=== PATIENT | female | born 1935 | race Caucasian/White ===

== ENCOUNTER 2018-02-02 10:42 | Inpatient (IN) | payer MEDICARE, OTHER ==
[2018-02-02 11:40] LABS: #Lymphocytes 1.4 thou/uL (1.20-3.40); #Monocytes 0.4 thou/uL (0.11-0.59); #Neutrophils 2.9 thou/uL (1.40-6.50); %Basophils 0.9 % (0.0-1.0); %Lymphocytes 28.8 % (21.0-51.0); %Monocytes 8.4 % (0.0-10.0); %Neutrophils 60.9 % (42.0-75.0); Hemoglobin 14.4 g/dL (12.0-16.0); Mean Corpuscular HGB CONC 34.4 g/dL (32.0-36.0); Mean Corpuscular Hemoglobin 30.1 pg (27.0-31.0); Mean Corpuscular Volume 87.5 fl (81.0-99.0); Mean Platelet Volume 7.3 fL (7.4-10.4); Platelet Count 219 thou/uL (130-400); RBC Distribution Width 12.1 % (11.5-14.5); White Blood Cell (WBC) Count 4.7 thou/uL (4.8-10.8)
[2018-02-02] MEDS ORDERED: Diltiazem HCl 125 MG, Admixture Fee 1 EACH in Sodium Chloride 0.9% 100 ML IVPB SCH (11:45)
[2018-02-02 12:05] LABS: ALT (SGPT) 11 U/L (8-55); AST (SGOT) 16 U/L (5-34); Alkaline Phosphatase 69 U/L (40-150); Anion Gap 14 mmol/L (10-20); BUN (Urea Nitrogen) 9 mg/dL (9.8-20.1); CK (CPK) 46 U/L (29-168); Calc. Creatinine Clearance 0 mL/min (70-130); Calcium 9.5 mg/dL (7.8-10.44); Carbon Dioxide 23 mmol/L (23-31); Chloride 103 mmol/L (98-107); Estimated GFR-MDRD 76; Globulin 2.5 g/dL (2.4-3.5); Glucose 101 mg/dL (83-110); Potassium 3.6 mmol/L (3.5-5.1); Protein, Total 6.5 g/dL (6.0-8.3); Sodium 136 mmol/L (136-145)
[2018-02-02 12:09] LABS: CKMB 3.1 ng/mL (0-6.6)
--- NOTE | 2018-02-02 13:17 | RAD ---
CHEST 1 VIEW: HISTORY: Emergency exam. Tachycardia. COMPARISON: Prior radiograph from 2011. FINDINGS: There is a density projecting over the left hemithorax, likely posterior mediastinum. The remainder of the lungs are clear. No pneumothorax. IMPRESSION: Density projecting over the left hemithorax, likely a sliding hiatal hernia. Two views of the chest may be beneficial if clinically warranted. POS: [place]
[2018-02-02] MEDS ORDERED: Enoxaparin Sodium 80 MG/0.8 ML SYRINGE ONE (13:29)
[2018-02-02] MEDS ORDERED: Acetaminophen 325 MG TAB PO PRN (13:48)
[2018-02-02] MEDS ORDERED: Bisacodyl 5 MG TAB PO PRN (13:48)
[2018-02-02] MEDS ORDERED: Acetaminophen 650 MG Suppository PR PRN (13:48)
[2018-02-02] MEDS ORDERED: Diltiazem 125 MG in Sodium Chloride 0.9% 100 ML IVPB PRN (13:50)
[2018-02-02] MEDS ORDERED: Diltiazem 125 MG in Sodium Chloride 0.9% 100 ML IVPB SCH (14:00)
--- NOTE | 2018-02-02 14:04 | HP ---
PRIMARY CARE PHYSICIAN: Romina Cummins M.D. PRIMARY GERIATRIC NURSE ASSISTANT: Paddy Aguiar M.D. CHIEF COMPLAINT: Palpitations. HISTORY OF PRESENT ILLNESS: Ms. Cifuentes is a pleasant 82-year-old lady who was seen at [facility] on 02/02/2018. She was hospitalized at a different facility about a month ago for l ow potassium. Over the last month, she had on and off lightheadedness. She also had fluctuating blood pressures ov er the last month. She also had occasional palpitations. She had more palpitations yesterday. She denies any chest pain or shortness of breath. She denies any fevers or chills. She denies any nause a or vomiting. REVIEW OF SYSTEMS: The following complete review of systems was negative, unless otherwise mentioned in the HPI or below: Constitutional: Weight loss or gain, ability to conduct usual activities. Skin: Rash, itching. Eyes: Double vision, pain. ENT/Mouth: Nose bleeding, neck stiffness, pain, tenderness. Cardiovascular: Palpitations, dyspnea on exertion, orthopnea. Respiratory: Shortness of breath, wheezing, cough, hemoptysis, fever or night sweats. Gastrointestinal: Poor appetite, abdominal pain, heartburn, nausea, vomiting, constipation, or diarr hea. Genitourinary: Urgency, frequency, dysuria, nocturia. Musculoskeletal: Pain, swelling. Neurologic/Psychiatric: Anxiety, depression. Allergy/Immunologic: Skin rash, bleeding tendency. 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 PAST SURGICAL HISTORY: Significant for surgery for retinal detachment in the left eye and cholecyste ctomy. SOCIAL HISTORY: Patient denies tobacco use, alcohol use and recreational drug use. CODE STATUS: I discussed her code status. She is FULL CODE. Her two daughters are her surrogate de cision makers. FAMILY HISTORY: Her dad from an enlarged heart. ALLERGIES: No known drug allergies. CURRENT MEDICATIONS: Losartan 50 mg daily, Toprol-XL 25 mg at bedtime, hydrochlorothiazide 12.5 mg d aily, clonidine 0.1 mg as needed. PHYSICAL EXAMINATION: GENERAL: On examination, Ms. Cifuentes is awake and alert, not in acute distress. VITAL SIGNS: Blood pressure is 121/74, pulse is 91. She is breathing at rate of 20 and saturating 9 5% on room air. She is afebrile. EYES: No scleral icterus. No conjunctival pallor. ENT: Moist mucosal membranes, no oropharyngeal erythema or exudates. NECK: Supple, nontender, trachea is midline, no thyromegaly. RESPIRATORY: Accessory muscles of breathing are not active. Chest wall movements are symmetric bila terally. LUNGS: Clear to auscultation without wheeze, rhonchi or crepitations. CARDIOVASCULAR: S1 and S2 are heard, tachycardic and irregular. LUNGS: Peripheral pulses palpable. No carotid bruit, no pericardial rub. ABDOMEN: Soft, nontender, bowel sounds are heard, no hepatomegaly, no splenomegaly. NEUROLOGIC: Cranial nerves II-XII intact. MUSCULOSKELETAL: Power is 5/5 in all 4 extremities. SKIN: No rashes or subcutaneous nodules. LYMPHATIC: No cervical lymphadenopathy. PSYCHIATRIC: Normal mood, normal affect. The patient is oriented to person, place, and time. IMAGING DATA AND LABORATORY DATA: Ms. Cifuentes's labs and investigations were reviewed. I reviewed her e lectrocardiogram, which shows atrial fibrillation with rapid ventricular response, no ST changes to s uggest an acute coronary syndrome. I also reviewed her chest x-ray, which does not show any pulmonar y infiltrates. She has low white count of 4,700, normal hemoglobin, normal platelet count, unremarka ble comprehensive metabolic profile, low TSH of 0.1364 and normal free T4 of 8.6 and normal troponin I. ASSESSMENT AND PLAN: Ms. Cifuentes is a pleasant 82-year-old lady who was seen at [facility] on 02/02/2018. Her problem list includes: 1. Atrial fibrillation with rapid ventricular response: Ms. Almodovar is presenting with atrial fibrill ation with rapid ventricular response. She received a bolus of Cardizem and is now on a Cardizem dri p. We will continue her on Cardizem drip, since her rate is controlled now. We will consult Cardiol ogy Service. I had a lengthy discussion with the patient and her family regarding treatment options as well as anticoagulation choices. We will await Cardiology Service input. 2. Hypertension: Monitor vital signs, titrate antihypertensives as needed. 3. Hiatal hernia: Stable. 4. Dyslipidemia: Patient is currently not on any medications for dyslipidemia. We will check fasti lipid profile. Many thanks for allowing me to participate in Ms. Cifuentes's care. Please feel free to contact me with an y questions or concerns. LEVEL OF RISK: High. LEVEL OF COMPLEXITY: High.
[2018-02-02 15:05] LABS: Troponin I 0.028 ng/mL (< 0.028)
[2018-02-02 17:05] VITALS: BMI 26.2
[2018-02-02 17:43] LABS: Troponin I 0.041 ng/mL (< 0.028)
[2018-02-02] MEDS: Enoxaparin Sodium 80 MG/0.8 ML SYRINGE SC SCH (20:49)
--- NOTE | 2018-02-02 22:21 | CON ---
DATE OF CONSULTATION: 02/02/2018 HISTORY OF PRESENT ILLNESS: Patient is an 82-year-old woman who presents for the evaluation of palpitations. Patient has a history of hypertension. She recently underwent a cardiac evaluation including a nuclear stress test, which was apparently unremarkable. The patient states that she suddenly noted that started feeling weak and had palpitations. She did not have any chest discomfort. PAST MEDICAL HISTORY: Hypertension and hiatal hernia. PAST SURGICAL HISTORY: Cholecystectomy and retinal eye surgery. SOCIAL HISTORY: She is a nonsmoker. MEDICATIONS ON ADMISSION: Losartan 50 daily, Toprol 25 XL daily, hydrochlorothiazide 12.5 daily, clonidine p.r.n. FAMILY HISTORY: Positive family history of heart disease. Father had a myocardial infarction. ALLERGIES: No known drug allergies. REVIEW OF SYSTEMS: Ten-point system otherwise unremarkable. No history of easy bruising or bleeding, bright red blood per rectum. PHYSICAL EXAMINATION: GENERAL: This is a well-developed woman in no acute distress with a blood pressure of 104/64. NECK: No jugular venous distention. LUNGS: Clear to auscultation. HEART: Irregular rate and rhythm. Normal S1, S2, no murmurs. ABDOMEN: Nondistended. EXTREMITIES: Showed no edema. SKIN: Warm and dry. NEUROLOGIC: Nonfocal. VASCULAR: Radial pulses are 2+. LABORATORY DATA: Sodium 136, potassium 3.6, chloride 103, bicarb 23, BUN 9, creatinine is 0.73, troponin 0.041. TSH was 1.364. Her white blood cell count is 4.7, hemoglobin 14.4, hematocrit 42.0, and her platelets are 219. EKG revealed atrial fibrillation with nonspecific ST-T wave abnormality. IMPRESSION: 1. Paroxysmal atrial fibrillation. 2. Hypertension. 3. Hiatal hernia. PLAN: This patient presents with new-onset atrial fibrillation. Patient has been started on IV Cardizem. We will restart the patient's Toprol. We will give her a dose of Lanoxin and try to convert to normal sinus rhythm. Patient has been started on Lovenox. Patient will be eventually switched to Eliquis. We will follow this patient with you throughout her hospitalization. BILLY
[2018-02-03 05:25] LABS: #Lymphocytes 1.5 thou/uL (1.20-3.40); #Monocytes 0.4 thou/uL (0.11-0.59); #Neutrophils 2.1 thou/uL (1.40-6.50); %Basophils 0.9 % (0.0-1.0); %Eosinophils 1.2 % (0.0-10.0); %Lymphocytes 37.6 % (21.0-51.0); %Monocytes 8.9 % (0.0-10.0); %Neutrophils 51.5 % (42.0-75.0); Hemoglobin 12.5 g/dL (12.0-16.0); Mean Corpuscular HGB CONC 33.8 g/dL (32.0-36.0); Mean Corpuscular Hemoglobin 29.5 pg (27.0-31.0); Mean Corpuscular Volume 87.5 fl (81.0-99.0); Platelet Count 178 thou/uL (130-400); RBC Distribution Width 12.1 % (11.5-14.5); Red Blood Cell (RBC) Count 4.24 mill/uL (4.20-5.40); White Blood Cell (WBC) Count 4.1 thou/uL (4.8-10.8)
[2018-02-03 05:34] LABS: Anion Gap 11 mmol/L (10-20); BUN (Urea Nitrogen) 10 mg/dL (9.8-20.1); Calc. Creatinine Clearance 73 mL/min (70-130); Calcium 8.9 mg/dL (7.8-10.44); Carbon Dioxide 25 mmol/L (23-31); Chloride 107 mmol/L (98-107); Estimated GFR-MDRD 79; Glucose 106 mg/dL (83-110); Potassium 3.3 mmol/L (3.5-5.1); Sodium 140 mmol/L (136-145)
[2018-02-03] MEDS ORDERED: Milk Of Magnesia 30 ML UDCUP PO PRN (07:45)
[2018-02-03] MEDS ORDERED: Artificial Tear Sol 15 ML BOT EA EYE PRN (07:45)
[2018-02-03] MEDS ORDERED: Diabetic Tussin 200 MG/10 ML UDCUP PO PRN (07:45)
[2018-02-03] MEDS ORDERED: Senokot 8.6 MG TAB PO PRN (07:45)
[2018-02-03] MEDS ORDERED: Mag-Al 1200 mg/1200 mg/30 ML UDCUP PO PRN (07:45)
[2018-02-03] MEDS ORDERED: Chloraseptic Spray 180 ml Bottle PO PRN (07:45)
[2018-02-03] MEDS ORDERED: Zolpidem Tartrate 5 MG TAB PO PRN (07:45)
[2018-02-03] MEDS ORDERED: Loratadine 10 MG TAB PO PRN (07:45)
[2018-02-03] MEDS ORDERED: Loperamide HCl 2 MG CAP PO PRN (07:45)
[2018-02-03] MEDS ORDERED: hydrALAZINE 20 MG/ML VIAL SLOW IVP PRN (07:45)
[2018-02-03] MEDS ORDERED: Sodium Chloride 0.65% Nasal 44 ML BOT EA NARE PRN (07:45)
[2018-02-03] MEDS ORDERED: Eucerin (Mineral Oil/Petrolatum,White) 30 gm Jar TOP PRN (07:45)
[2018-02-03] MEDS ORDERED: Nitroglycerin 0.4 MG TAB (25 Tab Bottle) SL PRN (07:45)
[2018-02-03] MEDS ORDERED: HYDROcodone/Acetaminophen 5/325 mg Tablet PO PRN (07:45)
[2018-02-03] MEDS ORDERED: Ondansetron ODT 4 MG TAB PO PRN (07:45)
[2018-02-03] MEDS ORDERED: Ondansetron HCl/PF 4 MG/2 ML Vial IVP PRN (07:45)
[2018-02-03 08:37] LABS: Cardiac Risk 5.6 (Less than 4.5)
[2018-02-03] MEDS: Enoxaparin Sodium 80 MG/0.8 ML SYRINGE SC SCH (08:46)
[2018-02-03] MEDS: Famotidine 20 MG TAB PO SCH ×2 (08:47→20:48)
--- NOTE | 2018-02-03 11:30 | PDOC.PN ---
- Subjective Encounter Start Date: 02/03/18 Encounter Start Time: 08:00 -: old records requested/rev Patient seen and examined. No new complaints. No overnight events - Objective MAR Reviewed: Yes Vital Signs & Weight: Vital Signs (12 hours) Temp Pulse Resp BP Pulse Ox 02/03/18 07:25 97.9 F 73 18 99/65 95 02/03/18 07:20 97.9 F 73 18 95 02/03/18 04:00 97.9 F 87 16 96/61 96 02/03/18 00:10 88 20 131/66 Weight Weight 169 lb I&O: 02/02/18 02/03/18 02/04/18 06:59 06:59 06:59 Intake Total 300.1 Output Total 50 Balance 250.1 Result Diagrams: 02/03/18 04:38 02/03/18 04:38 Radiology Reviewed by me: Yes EKG Reviewed by me: Yes (afib) Phys Exam - Physical Examination Constitutional: NAD HEENT: PERRLA, moist MMs, sclera anicteric Neck: no JVD, supple Respiratory: no wheezing, no rales, no rhonchi Cardiovascular: no significant murmur, irregular Gastrointestinal: soft, non-tender, no distention, positive bowel sounds Musculoskeletal: no edema, pulses present Neurological: non-focal, normal sensation, moves all 4 limbs Psychiatric: normal affect, A&O x 3 Skin: no rash, normal turgor Dx/Plan (1) New onset atrial fibrillation Code(s): I48.91 - UNSPECIFIED ATRIAL FIBRILLATION Status: Acute (2) Demand ischemia Code(s): I24.8 - OTHER FORMS OF ACUTE ISCHEMIC HEART DISEASE Status: Acute (3) Hypokalemia Code(s): E87.6 - HYPOKALEMIA Status: Acute (4) Hypertension Code(s): I10 - ESSENTIAL (PRIMARY) HYPERTENSION Status: Chronic (5) Sliding hiatal hernia Code(s): K44.9 - DIAPHRAGMATIC HERNIA WITHOUT OBSTRUCTION OR GANGRENE Status: Chronic - Plan cont current plan of care, plan discussed w/ family * continue cardizem drip, rate controlled but still in afib * cardiology following * echo will be done today * medication reviewed as below * symptomatic treatment * continue lovenox * replace potassium * discussed with family. Review of Systems - Review of Systems Constitutional: negative: fever, chills, sweats, weakness, malaise, other ENT: negative: Ear Pain, Ear Discharge, Nose Pain, Nose Discharge, Nose Congestion, Mouth Pain, Mouth Swelling, Throat Pain, Throat Swelling, Other Respiratory: negative: Cough, Dry, Shortness of Breath, Hemoptysis, SOB with Excertion, Pleuritic Pain, Sputum, Wheezing Cardiovascular: negative: chest pain, palpitations, orthopnea, paroxysmal nocturnal dyspnea, edema, light headedness, other Gastrointestinal: negative: Nausea, Vomiting, Abdominal Pain, Diarrhea, Constipation, Melena, Hematochezia, Other Genitourinary: negative: Dysuria, Frequency, Incontinence, Hematuria, Retention , Other Musculoskeletal: negative: Neck Pain, Shoulder Pain, Arm Pain, Back Pain, Hand Pain, Leg Pain, Foot Pain, Other Skin: negative: Rash, Lesions, Alex, Bruising, Other - Medications/Allergies Allergies/Adverse Reactions: Allergies Allergy/AdvReac Type Severity Reaction Status Date / Time No Known Allergies Allergy Unverified 02/02/18 11:37 Medications: Current Medications Acetaminophen (Tylenol) 650 mg PO Q4H PRN PRN Reason: Headache/Fever or Pain Hydrocodone Bitart/Acetaminophen ([place] 5/325) 1 tab PO Q4H PRN PRN Reason: Moderate Pain (4-6) Al Hydroxide/Mg Hydroxide (Maalox) 15 ml PO Q4H PRN PRN Reason: Heartburn or Indigestion Artificial Tears (Tears Renewed 15ml Bottle) 0 drop EA EYE PRN PRN PRN Reason: Dry Eyes Bisacodyl (Dulcolax) 10 mg PO DAILYPRN PRN PRN Reason: Constipation Enoxaparin Sodium (Lovenox) 70 mg SC Q12HR [facility] Last Admin: 02/03/18 08:46 Dose: 70 mg Famotidine (Pepcid) 20 mg PO BID [facility] Last Admin: 02/03/18 08:47 Dose: 20 mg Guaifenesin (Robitussin Sf) 200 mg PO Q4H PRN PRN Reason: Cough Hydralazine HCl (Apresoline) 10 mg SLOW IVP Q4H PRN PRN Reason: Systolic BP > 180 Diltiazem HCl 125 mg/ Sodium (Chloride) 125 mls @ 5 mls/hr IVPB INF JOSE; 5 MG/ HR PRN Reason: Protocol Last Admin: 02/03/18 09:31 Dose: 125 mls Loperamide HCl (Imodium) 2 mg PO PRN PRN PRN Reason: Diarrhea/Loose Stools Loratadine (Claritin) 10 mg PO DAILYPRN PRN PRN Reason: Sinus Symptoms Magnesium Hydroxide (Milk Of Magnesium) 30 ml PO DAILYPRN PRN PRN Reason: Constipation Mineral Oil/White Petrolatum (Eucerin Cream) 0 gm TOP BIDPRN PRN PRN Reason: Dry Skin Nitroglycerin (Nitrostat) 0.4 mg SL Q5MIN PRN PRN Reason: Chest Pain Ondansetron HCl (Zofran Odt) 4 mg PO Q6H PRN PRN Reason: Nausea/Vomiting Ondansetron HCl (Zofran) 4 mg IVP Q6H PRN PRN Reason: Nausea/Vomiting Phenol (Chloraseptic [place] 180 Ml Bot) 0 ml PO PRN PRN PRN Reason: Sore Throat Senna (Senokot) 2 tab PO HSPRN PRN PRN Reason: Constipation Sodium Chloride ([place] Nasal [place] 0.65%) 0 ml EA NARE QIDPRN PRN PRN Reason: Nasal Congestion Zolpidem Tartrate (Ambien) 5 mg PO HSPRN PRN PRN Reason: Insomnia
[2018-02-03] MEDS ORDERED: Potassium Chloride 20 MEQ TAB PO SCH (11:45)
[2018-02-03] MEDS ORDERED: Digoxin 0.5 MG/2 ML AMP SLOW IVP SCH (14:30)
[2018-02-03] MEDS: Apixaban 5 MG TAB PO SCH ×2 (20:49→21:03)
[2018-02-03] MEDS ORDERED: Digoxin 0.25 MG TAB PO SCH (21:00)
--- NOTE | 2018-02-03 22:51 | PDOC.EVN ---
Event Note - Event Note Event Note: Called to address concern for eye issues.Pt seen and care discussed w family. 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 Tried the number for the MD myself but it's not a direct number. Pt given option of Inpt consult with our [facility] but they would rather see their own on Sunday or even tomorrow if released early from the hospital. Will monitor ON.No vision loss and does not seem consistent with CRVO etc. Chart reviewed. Discussed with Dr. Newsome who has stopped Lovenox for now given for a-fib.NSR for now
[2018-02-04 05:12] LABS: #Eosinphils 0.1 thou/uL (0.0-0.7); #Lymphocytes 1.7 thou/uL (1.20-3.40); #Monocytes 0.3 thou/uL (0.11-0.59); %Basophils 0.9 % (0.0-1.0); %Eosinophils 1.5 % (0.0-10.0); %Lymphocytes 40.8 % (21.0-51.0); %Monocytes 8.5 % (0.0-10.0); %Neutrophils 48.4 % (42.0-75.0); Hemoglobin 12.7 g/dL (12.0-16.0); Mean Corpuscular HGB CONC 34.7 g/dL (32.0-36.0); Mean Corpuscular Hemoglobin 31.7 pg (27.0-31.0); Mean Corpuscular Volume 91.5 fl (81.0-99.0); Mean Platelet Volume 8.3 fL (7.4-10.4); Platelet Count 191 thou/uL (130-400); RBC Distribution Width 12.3 % (11.5-14.5); Red Blood Cell (RBC) Count 3.99 mill/uL (4.20-5.40); White Blood Cell (WBC) Count 4.1 thou/uL (4.8-10.8)
[2018-02-04 05:30] LABS: Digoxin 1.46 ng/mL (0.8-2.0)
[2018-02-04 05:41] LABS: Anion Gap 10 mmol/L (10-20); BUN (Urea Nitrogen) 8 mg/dL (9.8-20.1); Calc. Creatinine Clearance 72 mL/min (70-130); Calcium 8.6 mg/dL (7.8-10.44); Carbon Dioxide 23 mmol/L (23-31); Chloride 109 mmol/L (98-107); Estimated GFR-MDRD 76; Glucose 91 mg/dL (83-110); Potassium 3.7 mmol/L (3.5-5.1); Sodium 138 mmol/L (136-145)
[2018-02-04] MEDS: Famotidine 20 MG TAB PO SCH ×2 (08:54→20:08)
[2018-02-04] MEDS ORDERED: Digoxin 0.25 MG TAB PO SCH (09:00)
--- NOTE | 2018-02-04 10:29 | PDOC.PN ---
- Subjective Encounter Start Date: 02/04/18 Encounter Start Time: 08:40 pt was loaded with digoxin yesterday and pt felt reaction with hallucination, confusion, hallucination cleared but confusion persisted, pt does not want to take digoxin any more - Objective MAR Reviewed: Yes Vital Signs & Weight: Vital Signs (12 hours) Temp Pulse Resp BP Pulse Ox 02/04/18 08:54 76 02/04/18 05:11 93 L 02/04/18 04:00 97.8 F 76 16 134/74 94 L 02/04/18 00:00 97.5 F L 63 17 124/63 93 L Weight Weight 165 lb 1.6 oz I&O: 02/03/18 02/04/18 02/05/18 06:59 06:59 06:59 Intake Total 300.1 208 Output Total 50 Balance 250.1 208 Result Diagrams: 02/04/18 04:17 02/04/18 04:17 EKG Reviewed by me: Yes (nsr) Phys Exam - Physical Examination Constitutional: NAD HEENT: PERRLA, moist MMs, sclera anicteric Neck: no JVD, supple Respiratory: no wheezing, no rales, no rhonchi Cardiovascular: RRR, no significant murmur, no rub Gastrointestinal: soft, non-tender, no distention, positive bowel sounds Musculoskeletal: no edema, pulses present Neurological: non-focal, normal sensation, moves all 4 limbs Psychiatric: normal affect Skin: no rash, normal turgor Dx/Plan (1) New onset atrial fibrillation Code(s): I48.91 - UNSPECIFIED ATRIAL FIBRILLATION Status: Acute (2) Demand ischemia Code(s): I24.8 - OTHER FORMS OF ACUTE ISCHEMIC HEART DISEASE Status: Acute (3) Hypokalemia Code(s): E87.6 - HYPOKALEMIA Status: Acute (4) Hypertension Code(s): I10 - ESSENTIAL (PRIMARY) HYPERTENSION Status: Chronic (5) Sliding hiatal hernia Code(s): K44.9 - DIAPHRAGMATIC HERNIA WITHOUT OBSTRUCTION OR GANGRENE Status: Chronic - Plan cont current plan of care, plan discussed w/ family * continue elliquis * dc digoxin for reaction * continue toprol xl * will consider adding cardizem if needed * medication reviewed as below * symptomatic treatment * will monitor today * echo pending. Review of Systems - Review of Systems Constitutional: negative: fever, chills, sweats, weakness, malaise, other Eyes: negative: Pain, Vision Change, Conjunctivae Inflammation, Eyelid Inflammation, Redness, Other ENT: negative: Ear Pain, Ear Discharge, Nose Pain, Nose Discharge, Nose Congestion, Mouth Pain, Mouth Swelling, Throat Pain, Throat Swelling, Other Respiratory: negative: Cough, Dry, Shortness of Breath, Hemoptysis, SOB with Excertion, Pleuritic Pain, Sputum, Wheezing Cardiovascular: negative: chest pain, palpitations, orthopnea, paroxysmal nocturnal dyspnea, edema, light headedness, other Gastrointestinal: negative: Nausea, Vomiting, Abdominal Pain, Diarrhea, Constipation, Melena, Hematochezia, Other Genitourinary: negative: Dysuria, Frequency, Incontinence, Hematuria, Retention , Other Musculoskeletal: negative: Neck Pain, Shoulder Pain, Arm Pain, Back Pain, Hand Pain, Leg Pain, Foot Pain, Other Skin: negative: Rash, Lesions, Alex, Bruising, Other Neurological: Confusion. negative: Weakness, Numbness, Incoordination, Change in Speech, Seizures, Other - Medications/Allergies Allergies/Adverse Reactions: Allergies Allergy/AdvReac Type Severity Reaction Status Date / Time No Known Allergies Allergy Unverified 02/02/18 11:37 Medications: Current Medications Acetaminophen (Tylenol) 650 mg PO Q4H PRN PRN Reason: Headache/Fever or Pain Hydrocodone Bitart/Acetaminophen ([place] 5/325) 1 tab PO Q4H PRN PRN Reason: Moderate Pain (4-6) Al Hydroxide/Mg Hydroxide (Maalox) 15 ml PO Q4H PRN PRN Reason: Heartburn or Indigestion Apixaban (Eliquis) 5 mg PO BID [facility] Last Admin: 02/03/18 21:03 Dose: 5 mg Apixaban (Eliquis) 5 mg PO NOW [facility] Stop: 02/04/18 12:00 Artificial Tears (Tears Renewed 15ml Bottle) 0 drop EA EYE PRN PRN PRN Reason: Dry Eyes Bisacodyl (Dulcolax) 10 mg PO DAILYPRN PRN PRN Reason: Constipation Famotidine (Pepcid) 20 mg PO BID [facility] Last Admin: 02/04/18 08:54 Dose: Not Given Guaifenesin (Robitussin Sf) 200 mg PO Q4H PRN PRN Reason: Cough Hydralazine HCl (Apresoline) 10 mg SLOW IVP Q4H PRN PRN Reason: Systolic BP > 180 Loperamide HCl (Imodium) 2 mg PO PRN PRN PRN Reason: Diarrhea/Loose Stools Loratadine (Claritin) 10 mg PO DAILYPRN PRN PRN Reason: Sinus Symptoms Magnesium Hydroxide (Milk Of Magnesium) 30 ml PO DAILYPRN PRN PRN Reason: Constipation Metoprolol Succinate (Toprol Xl) 25 mg PO DAILY [facility] Last Admin: 02/04/18 09:04 Dose: 25 mg Mineral Oil/White Petrolatum (Eucerin Cream) 0 gm TOP BIDPRN PRN PRN Reason: Dry Skin Nitroglycerin (Nitrostat) 0.4 mg SL Q5MIN PRN PRN Reason: Chest Pain Ondansetron HCl (Zofran Odt) 4 mg PO Q6H PRN PRN Reason: Nausea/Vomiting Ondansetron HCl (Zofran) 4 mg IVP Q6H PRN PRN Reason: Nausea/Vomiting Phenol (Chloraseptic [place] 180 Ml Bot) 0 ml PO PRN PRN PRN Reason: Sore Throat Senna (Senokot) 2 tab PO HSPRN PRN PRN Reason: Constipation Sodium Chloride ([place] Nasal [place] 0.65%) 0 ml EA NARE QIDPRN PRN PRN Reason: Nasal Congestion Zolpidem Tartrate (Ambien) 5 mg PO HSPRN PRN PRN Reason: Insomnia
[2018-02-04] MEDS ORDERED: Apixaban 5 MG TAB PO SCH (10:30)
[2018-02-04] MEDS: Apixaban 5 MG TAB PO SCH ×2 (11:21→20:08)
[2018-02-05 05:29] LABS: #Eosinphils 0.1 thou/uL (0.0-0.7); #Lymphocytes 1.5 thou/uL (1.20-3.40); #Monocytes 0.3 thou/uL (0.11-0.59); #Neutrophils 2.3 thou/uL (1.40-6.50); %Eosinophils 1.4 % (0.0-10.0); %Lymphocytes 35.4 % (21.0-51.0); %Monocytes 7.9 % (0.0-10.0); %Neutrophils 54.3 % (42.0-75.0); Hemoglobin 11.8 g/dL (12.0-16.0); Mean Corpuscular Hemoglobin 30.7 pg (27.0-31.0); Mean Corpuscular Volume 90.2 fl (81.0-99.0); Mean Platelet Volume 7.6 fL (7.4-10.4); Platelet Count 183 thou/uL (130-400); RBC Distribution Width 11.8 % (11.5-14.5); Red Blood Cell (RBC) Count 3.86 mill/uL (4.20-5.40); White Blood Cell (WBC) Count 4.3 thou/uL (4.8-10.8)
[2018-02-05 05:42] LABS: Anion Gap 11 mmol/L (10-20); BUN (Urea Nitrogen) 7 mg/dL (9.8-20.1); Calc. Creatinine Clearance 72 mL/min (70-130); Calcium 8.5 mg/dL (7.8-10.44); Carbon Dioxide 25 mmol/L (23-31); Chloride 102 mmol/L (98-107); Estimated GFR-MDRD 79; Glucose 100 mg/dL (83-110); Potassium 3.5 mmol/L (3.5-5.1); Sodium 134 mmol/L (136-145)
[2018-02-05] MEDS: Famotidine 20 MG TAB PO SCH (08:07)
[2018-02-05] MEDS: Apixaban 5 MG TAB PO SCH (08:17)
[2018-02-05 09:58] VITALS: BP 139/74; TEMP 97
--- NOTE | 2018-02-05 12:26 | DIS ---
DATE OF ADMISSION: 02/02/2018 DATE OF DISCHARGE: 02/05/2018 PRIMARY CARE PHYSICIAN: Dr. Romina Cummins. DISCHARGE DISPOSITION: Home. PRIMARY DISCHARGE DIAGNOSES: 1. Atrial fibrillation with rapid ventricular response, new onset. 2. Demand ischemia of myocardium. 3. Hypokalemia. SECONDARY DISCHARGE DIAGNOSES: 1. Hypertension. 2. Sliding hiatal hernia. PRIMARY PROCEDURE AND OPERATION: None. RADIOLOGICAL INVESTIGATION: Chest x-ray, no acute cardiopulmonary process. Echocardiography showed EF 50%-55%. SIGNIFICANT LABORATORY DATA: WBC 4.3, hemoglobin 11.8, platelet 183,000. Sodium 134, potassium 3.5, BUN 7, creatinine 0.71, calcium 8.5, troponin 0.041, LDL 120. TSH 0.13, T4 8.6. LFT normal. DISCHARGE MEDICATIONS: Eliquis 5 mg p.o. b.i.d., clonidine 0.1 mg p.o. daily p.r.n. for blood pressu re more than 160/100, hydrochlorothiazide 12.5 mg p.o. daily, losartan 50 mg p.o. daily, Toprol-XL 25 mg p.o. at bedtime. CONTRAINDICATIONS: None. CODE STATUS: FULL CODE. INPATIENT CONSULTANTS: Dr. Newsome was consulted while in hospital. TEST RESULTS PENDING ON DISCHARGE: None. ALLERGIES: No known drug allergy. DISCHARGE PLAN: Post hospital, the patient will follow up with primary care physician in 1 week. Th e patient will follow up with Dr. Aguiar as instructed. HOSPITAL COURSE: An 82-year-old female who was admitted by Dr. Roberts, please see his H&P for further detail. The patient was presented with palpitations. She was diagnosed with atrial fibrillation wi th rapid ventricular response, based on EKG. She had hypokalemia. The patient was admitted to telem etry floor. She was treated with Cardizem drip. Cardiology was consulted. We did echocardiography. Echocardiography was normal. She was on a Cardizem drip for 24 hours, but she remained in atrial f ibrillation and that is why Dr. Newsome started on digoxin therapy. This patient did not tolerate d igoxin therapy very well. She has reaction with hallucination and visual symptoms and that is why di goxin therapy was discontinued. The patient converted to normal sinus rhythm and we continued with T oprol-XL for anticoagulation therapy. We started on Eliquis therapy. Risk and benefit of Eliquis th umm was discussed with the patient's family member and agreed with continuing Eliquis therapy. At this point, the patient is in sinus rhythm, her heart rate is under control. Patient is medically stable for discharge. The patient is seen and examined at bedside today. Plan of care discussed with the family member. N ew medication prescription sent to her pharmacy. PHYSICAL EXAMINATION: VITAL SIGNS: Today, temperature 97.0, pulse 71 regular, respiratory rate 18, saturation 93%, blood p ressure 139/74, weight 167 pounds. GENERAL: The patient is currently alert, awake, no acute distress. HEAD: Normocephalic, atraumatic. EYES: Pupils round, reactive to light. Extraocular muscle intact. ENT: Oropharynx within normal limits. Moist mucous membrane, no oral lesion, no pharyngeal erythema , no exudate. NECK: Supple. LUNGS: Clear to auscultation without any rhonchi or rales. CARDIAC: S1, S2 regular without any murmur. ABDOMEN: Soft and benign without any tenderness. EXTREMITIES: No edema. NEUROLOGIC: Nonfocal examination. Overall, patient is medically stable for discharge today. Review of systems negative.
--- NOTE | 2018-02-05 13:29 | PRG ---
DATE OF SERVICE: 02/05/2018 Ms. Cifuentes is doing well. She converted back to sinus rhythm 36 hours ago. She had some difficulty wit h hallucinations overnight. This is likely due to sundowning. She attributes this to either digoxin or Eliquis. PHYSICAL EXAMINATION: VITAL SIGNS: Blood pressure 132/92, pulse 71, temperature 97. LUNGS: Clear to auscultation. CARDIAC: Regular rate and rhythm. ABDOMEN: Soft, nontender, nondistended. EXTREMITIES: No edema. IMPRESSION: Paroxysmal atrial fibrillation. RECOMMENDATIONS: Ms. Cifuentes's paroxysmal atrial fibrillation was short lived. At this point, would rec ommend Eliquis in addition to beta kendal therapy. We will hold digoxin. Her mental status change is likely due to sundowning. She is 82. Her symptoms occurred at around 10:30 or 11:[address] ates this could have been due to Eliquis, although she received a dose of Eliquis in the morning with out any issues. The plan is to follow up Ms. Cifuentes in the next 1 week.
== END 2018-02-05 12:40 | disposition home or self-care (01) | DRG 309 ==
LOC: ERS 10:42 → 2NO 16:46
PROVIDERS: ADMIT Internal Medicine; ATTEND Internal Medicine
DX: I48.0 Paroxysmal atrial fibrillation (principal); I24.8 Other forms of acute ischemic heart disease; R44.3 Hallucinations, unspecified; E87.6 Hypokalemia; I10 Essential (primary) hypertension; K44.9 Diaphragmatic hernia without obstruction or gangrene; H54.8 Legal blindness, as defined in USA; E78.5 Hyperlipidemia, unspecified; T46.0X5A Adverse effect of cardiac-stimulant glycosides and drugs of similar action, initial encounter
CPT/HCPCS: 36415; 71045; 80048; 80053; 80061; 80162; 82553; 84436; 84443; 84484; 85025; 93005; 93306; 94760; 96365; 96366; 96372; 96376; J1160; J1650; J7050

== ENCOUNTER 2019-08-13 20:04 | Inpatient (IN) | payer MEDICARE ==
--- NOTE | 2019-08-13 21:45 | RAD ---
XR Hip Rt 2-3 View History: Pain Comparison: None. Findings: Intertrochanteric fracture right femur with mild impaction and varus angulation. Limited ev aluation of the right obturator ring is intact. Impression: Impacted there is reticulated intertrochanteric fracture right femur.
--- NOTE | 2019-08-13 21:46 | RAD ---
XR Chest 1 View Portable History: Fall Comparison: Radiograph 2018 Findings: Opacity projecting over the left hemithorax is similar appearance containing gas likely a l arge hiatal hernia. Atelectasis left lung base. No pneumothorax. Right lung is clear. Cardiac silhouette is similar. Moderate vascular calcifications of the aorta. No acute osseous abnorm ality. Surgical clips project over the left axilla. Subcortical cyst formation left humeral neck. Impression: Large hiatal hernia otherwise no acute intrathoracic abnormality.
[2019-08-13 21:52] LABS: #Lymphocytes 1.1 thou/uL (1.20-3.40); #Monocytes 0.8 thou/uL (0.11-0.59); #Neutrophils 11.3 thou/uL (1.40-6.50); %Basophils 0.1 % (0.0-1.0); %Eosinophils 0.3 % (0.0-10.0); %Lymphocytes 8.3 % (21.0-51.0); %Monocytes 6.1 % (0.0-10.0); %Neutrophils 85.1 % (42.0-75.0); Hemoglobin 12.3 g/dL (12.0-16.0); Mean Corpuscular Hemoglobin 30.7 pg (27.0-31.0); Mean Corpuscular Volume 87.8 fL (78.0-98.0); Mean Platelet Volume 6.8 fL (7.4-10.4); Platelet Count 188 thou/uL (130-400); RBC Distribution Width 12.3 % (11.5-14.5); White Blood Cell (WBC) Count 13.2 thou/uL (4.8-10.8)
--- NOTE | 2019-08-13 21:53 | RAD ---
XR Pelvis AP STANDARD History: Pain. Fall Comparison: Hip radiograph same day Findings: Intertrochanteric fracture right femur with varus angulation and impaction. Severe degenera tive disease pubic symphysis. SI joints are degenerative. Impression: Impacted foreshortened varus angulated intertrochanteric fracture right femur.
[2019-08-13 22:09] LABS: ALT (SGPT) 12 U/L (8-55); AST (SGOT) 17 U/L (5-34); Albumin 3.3 g/dL (3.4-4.8); Alkaline Phosphatase 38 U/L (40-110); Anion Gap 10 mmol/L (10-20); BUN (Urea Nitrogen) 10 mg/dL (9.8-20.1); Bilirubin, Total 0.7 mg/dL (0.2-1.2); Calc. Creatinine Clearance 0 mL/min (70-130); Calcium 7.9 mg/dL (7.8-10.44); Carbon Dioxide 27 mmol/L (23-31); Chloride 93 mmol/L (98-107); Estimated GFR-MDRD 77; Glucose 120 mg/dL (83-110); Potassium 3.5 mmol/L (3.5-5.1); Protein, Total 5.3 g/dL (6.0-8.3); Sodium 126 mmol/L (136-145)
[2019-08-13 22:27] LABS: INR-International Normal Ratio 1.2; Prothrombin Time 14.8 SEC (12.0-14.7)
--- NOTE | 2019-08-13 22:35 | CT ---
CT Brain WO Con History: Fall Comparison: None. Findings: Right frontoparietal scalp contusion. The underlying calvarium is intact. Scleral banding b ilaterally. No acute hemorrhage or infarct. No midline shift or mass effect. Moderate to severe periventricular a nd deep white matter microangiopathic changes. Moderate atrophy. 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 Impression: Right frontoparietal scalp contusion without acute posttraumatic intracranial sequelae.
[2019-08-13 22:41] LABS: Magnesium 1.6 mg/dL (1.6-2.6); Phosphorus 2.6 mg/dL (2.3-4.7)
[2019-08-13] MEDS ORDERED: Promethazine HCl 25 MG/ML VIAL IM/IV PRN (22:46)
[2019-08-13] MEDS ORDERED: Dextrose 5% in Water 1,000 ML IV PRN (22:46)
[2019-08-13] MEDS ORDERED: Ondansetron PF 4 MG/2 ML Vial IVP PRN (22:46)
[2019-08-13] MEDS ORDERED: hydrALAZINE 20 MG/ML VIAL SLOW IVP PRN (22:46)
[2019-08-13] MEDS ORDERED: Dextrose 50% Abboject 50 ML SYRINGE SLOW IVP PRN (22:46)
[2019-08-13] MEDS ORDERED: Morphine 2 MG/ML SYRINGE SLOW IVP PRN (22:46)
[2019-08-13] MEDS ORDERED: traMADol HCl 50 MG TAB PO PRN ×2 (22:52)
[2019-08-13] MEDS ORDERED: Ketorolac Tromethamine 30 MG/ML VIAL IVP SCH (23:00)
[2019-08-13] MEDS ORDERED: Ondansetron PF 4 MG/2 ML Vial ONE (23:08)
[2019-08-13] MEDS ORDERED: Ketorolac Tromethamine 30 MG/ML VIAL ONE (23:08)
[2019-08-13] MEDS ORDERED: Magnesium 2 GM/50 ML 2 GM in Premix Bag 1 BAG IVPB SCH (23:15)
[2019-08-13] MEDS ORDERED: Potassium Phosphate 15 MMOL, Admixture Fee 1 EACH in Sodium Chloride 0.9% 100 ML IVPB SCH (23:30)
--- NOTE | 2019-08-14 00:12 | HP ---
TRAUMA SURGEON: Dr. Kaur. CONSULTING PHYSICIAN: Dr. Christian. HISTORY OF PRESENT ILLNESS: The patient is an 83-year-old female who presented to the emergency department via EMS after mechanical fall on [place]. The patient is not sure exactly why she fell, but reported she did not have a loss of consciousness, denies lightheadedness at the time of the event as well as syncope or near-syncope. The patient denies hitting her head. There were no signs of trauma on her head as well. The emergency department physician did report that the patient had a syncopal or near syncopal episode when the IV was being placed by the nurse. Subsequently, a CT of the head was completed, which demonstrated no intracranial hemorrhage. Other x-ray imaging demonstrated the patient has a right intertrochanteric femur fracture for which Dr. Christian of Orthopedic Surgery was consulted and recommends surgical fixation. Trauma was consulted to admit the patient to the Trauma Service. At the time of my evaluation, the patient complained of right-sided hip pain. Denied pain at other locations. Reported she is very sensitive to narcotics and preferred not to receive IV narcotic pain medications. REVIEW OF SYSTEMS: All additional 10-point review of systems negative except as indicated above. PAST MEDICAL HISTORY: Left-sided breast cancer status post left mastectomy, hypertension, hiatal hernia, atrial fibrillation, macular degeneration, and legally blind in the right eye. PAST SURGICAL HISTORY: Left-sided mastectomy due to breast cancer, cholecystectomy, and eye surgeries, unsure of type. SOCIAL HISTORY: The patient lives at home alone. She has daughters and friends who are involved in her medical care. She denies tobacco, drug, or alcohol use. MEDICATIONS: Eliquis, losartan with potassium, prednisone, hydrochlorothiazide, metoprolol, and amoxicillin. ALLERGIES: NO KNOWN DRUG ALLERGIES. PHYSICAL EXAMINATION: VITAL SIGNS: Temperature 98.1, pulse 82, respirations 18, oxygen saturation 97% on room air, blood pressure 148/84. PRIMARY SURVEY: Airway intact. Adequate breath sounds bilaterally. 2+ pulses in the bilateral radials, femorals, and DPs. GCS is 15. Gross motor and sensation are intact. No lacerations, bruising or external bleeding. SECONDARY SURVEY: HEAD: Normocephalic, atraumatic with no gross palpable skull deformities or tenderness. EYES: Pupils 3-2, equal, round, and reactive to light bilaterally. ENT: No hemotympanum, no epistaxis, no septal hematoma. Midface stable to manipulation. No blood in the oropharynx. Dentition is intact. No anterior neck injury/crepitus/tenderness. C-SPINE: No step-offs or deformities, nontender. C-collar not in place. CHEST: Nontender. No crepitus. No abrasions or ecchymosis noted. Equal chest movement, left-sided mastectomy noticeable. ABDOMEN: Soft, nontender, nondistended. PELVIS: Stable to manipulation. No abrasions or ecchymosis. Right-sided hip tenderness. RECTAL: Deferred. GENITOURINARY: Deferred. EXTREMITIES: Right-sided lower extremity shortened and externally rotated. No abrasions or ecchymosis noted. Chronic swelling to the right ankle appears not to be increased from previously. Patient reports no tenderness. 2+ pulses in the bilateral radials, femorals, and DPs. BACK/SPINE: No step-offs or deformities or tenderness to palpation of the thoracic or lumbar spine. No abrasions or ecchymosis noted. NEUROLOGIC: 5/5 strength in the bilateral coverstitch binder, plantar flexion, and dorsiflexion. Gross normal sensation x4 extremities. LABORATORY FINDINGS: White count 13.2, hemoglobin 12.3, hematocrit 35.2, platelets 188. INR 1.2. Sodium 126, potassium 3.5, chloride 93, carbon dioxide 27, BUN 10, creatinine 0.72, glucose 120, phosphorus 2.6, magnesium 1.6. Total bilirubin 0.7, AST 17, ALT 12, alkaline phosphatase 38. DIAGNOSTIC FINDINGS: Chest x-ray demonstrates large hiatal hernia. Otherwise, no acute intrathoracic abnormalities. X-ray of the right hip demonstrates there is a rectangular reticulated intertrochanteric fracture of the right femur. X-ray of the pelvis demonstrates impacted foreshortened valgus angulated intertrochanteric fracture of the right femur. CT of the brain demonstrates right frontoparietal scalp contusion without acute posttraumatic intracranial sequela. ASSESSMENT: 1. Status post mechanical fall from standing on Eliquis. 2. Right intertrochanteric femur fracture. 3. Hyponatremia and hypochloremia. 4. Hypophosphatemia and hypomagnesemia. 5. History of left-sided breast cancer status post mastectomy, hypertension, hiatal hernia, atrial fibrillation, macular degeneration, right eye blindness. PLAN: The patient will be admitted to the Trauma Service. We will hold her home Eliquis and restart her other home medications as clinically indicated. Dr. Christian of Orthopedic Surgery has been notified of the patient and he is recommending surgical fixation on Sunday due to the patient's last Eliquis use this morning. She will be n.p.o. after midnight tomorrow night in preparation for the OR. At this time, she will receive a regular diet. She will be strict bedrest and she will receive physical and occupational therapy postoperatively. Hyperchloremic hyponatremia is likely secondary to dehydration. The patient did receive IV fluids in the emergency department. We will encourage the patient to drink more fluids and recheck her labs in the morning. She will receive phosphorus and magnesium electrolyte replacements today. The patient will likely need placement in acute rehab facility postoperatively. This patient was discussed with Dr. Kaur before this dictation. Job ID: [id number]
[2019-08-14 01:07] VITALS: BMI 29.0
[2019-08-14] MEDS: Acetaminophen 500 MG TAB PO SCH ×5 (01:29→23:29)
[2019-08-14] MEDS ORDERED: cloNIDine 0.1 MG TAB PO PRN (03:57)
[2019-08-14] MEDS ORDERED: Calcium Carbonate 500 MG ChewTAB PO PRN (04:17)
[2019-08-14 04:57] LABS: #Lymphocytes 0.7 thou/uL (1.20-3.40); #Monocytes 0.8 thou/uL (0.11-0.59); #Neutrophils 9.6 thou/uL (1.40-6.50); %Basophils 0.1 % (0.0-1.0); %Eosinophils 0.2 % (0.0-10.0); %Lymphocytes 6.6 % (21.0-51.0); %Monocytes 7.2 % (0.0-10.0); %Neutrophils 85.9 % (42.0-75.0); Hemoglobin 11.9 g/dL (12.0-16.0); Mean Corpuscular HGB CONC 35.6 g/dL (32.0-36.0); Mean Corpuscular Hemoglobin 31.9 pg (27.0-31.0); Mean Corpuscular Volume 89.8 fL (78.0-98.0); Mean Platelet Volume 6.8 fL (7.4-10.4); Platelet Count 170 thou/uL (130-400); RBC Distribution Width 12.4 % (11.5-14.5); Red Blood Cell (RBC) Count 3.72 mill/uL (4.20-5.40); White Blood Cell (WBC) Count 11.2 thou/uL (4.8-10.8)
[2019-08-14 05:20] LABS: Anion Gap 12 mmol/L (10-20); BUN (Urea Nitrogen) 12 mg/dL (9.8-20.1); Calc. Creatinine Clearance 88 mL/min (70-130); Calcium 7.3 mg/dL (7.8-10.44); Carbon Dioxide 21 mmol/L (23-31); Chloride 94 mmol/L (98-107); Estimated GFR-MDRD 89; Glucose 157 mg/dL (83-110); Phosphorus 3.1 mg/dL (2.3-4.7); Potassium 3.3 mmol/L (3.5-5.1); Sodium 124 mmol/L (136-145)
[2019-08-14] MEDS: Famotidine 20 MG TAB PO SCH ×2 (05:34→20:27)
[2019-08-14] MEDS ORDERED: Ibuprofen 600 MG TAB PO SCH (06:00)
[2019-08-14] MEDS ORDERED: Potassium Chloride 40 MEQ in Sodium Chloride 0.9% 250 ML 250 ML IVPB SCH (08:30)
[2019-08-14] MEDS: Losartan 25 MG TAB PO SCH (08:44)
[2019-08-14] MEDS: Polyethylene Glycol 3350 17 GM Packet PO SCH (08:45)
[2019-08-14] MEDS: predniSONE 5 MG TAB PO SCH ×2 (08:45→18:11)
[2019-08-14] MEDS: Senokot S 8.6-50 MG TAB PO SCH ×2 (08:45→20:27)
[2019-08-14] MEDS ORDERED: Hydrochlorothiazide 25 MG TAB PO SCH (09:00)
--- NOTE | 2019-08-14 11:53 | CON ---
DATE OF CONSULTATION: 08/14/2019 CHIEF COMPLAINT: Right hip pain. HISTORY OF PRESENT ILLNESS: Ms. Cifuentes is an 83-year-old female, who was at home yesterday. She lost her balance and fell. She landed on her right side. She was unable to ambulate. She had immediate pain. She was taken to the emergency department by EMS. She was found to have a right intertrochanteric femur fracture. She has been admitted to the hospital overnight. She denies loss of consciousness. She has been comfortable. She has had pain control. She reports resting overnight. REVIEW OF SYSTEMS: Positive for right hip pain with any motion. PAST MEDICAL HISTORY: Breast cancer, hypertension, hiatal hernia, atrial fibrillation, and macular degeneration with legal blindness on the right. PAST SURGICAL HISTORY: Mastectomy from previous breast cancer, also cholecystectomy, previous eye surgery, and possible cataracts. MEDICATIONS: The patient is on; 1. Eliquis. 2. Losartan. 3. Potassium. 4. Prednisone. 5. Hydrochlorothiazide. 6. Metoprolol. 7. Amoxicillin. PHYSICAL EXAMINATION: VITAL SIGNS: Temperature is 98.8, pulse is 83, respiratory rate is 14, oxygen saturation 98%, and blood pressure is 120/68. GENERAL: She is alert and oriented, no apparent distress. RESPIRATORY: Breathing comfortably. ABDOMEN: Soft, nontender, and nondistended. MUSCULOSKELETAL: The patient's right leg has a slightly shortened posture and external rotation. She is able to flex and extend the foot and ankle. Palpable pulse. No laceration or ecchymosis is visible. Left lower extremity and upper extremities are atraumatic. IMAGING DATA: X-rays of the right hip demonstrated displaced intertrochanteric two-part fracture. IMPRESSION: Right intertrochanteric femur fracture. PLAN: At this point, the patient will need surgical intervention. We will plan for dynamic hip screw fixation when she is ready for surgery. This will allow her to mobilize with a goal of preventing complications of prolonged bedrest. She is on Eliquis and therefore, we will need to wait on surgery until tomorrow. This will give her 48 hours off her blood thinner. She will have adequate pain control. She will have medical optimization. She will have DVT prophylaxis and antibiotic prophylaxis as needed. Job ID: [id number]
--- NOTE | 2019-08-14 12:13 | PRG ---
DATE OF SERVICE: 08/14/2019 SUBJECTIVE: The patient is hospital day 2, status post ground level fall, in which she sustained a right intertrochanteric femur fracture. The patient is on Eliquis, since she is unable to undergo surgery today. She will be made n.p.o. after midnight and will likely have surgery tomorrow. Overnight, the patient had no issues. Her pain was controlled. She is tolerating a diet this morning, although she has a decreased appetite. OBJECTIVE: VITAL SIGNS: Temperature is 98.8, heart rate 83, blood pressure 120/68, respirations 14, and oxygen saturation 98% on room air. GENERAL: The patient is resting comfortably in bed. She is awake, alert, and oriented x3. [place] Coma Scale is 15. HEENT: Unremarkable. LUNGS: Clear to auscultation with good inspiratory and expiratory effort. HEART: Regular rate and rhythm. ABDOMEN: Soft, flat, and nontender with active bowel sounds. PELVIS: Stable with pain to the right hip consistent with her fracture. EXTREMITIES: Neurovascularly intact x4. LABORATORY FINDINGS: White blood cell count 11.2, hemoglobin 11.9, hematocrit 33.4, and platelets 170. Sodium 124, potassium 3.3, chloride 94, CO2 of 21, BUN 12, creatinine 0.64, and glucose 157. IMAGING STUDIES: No radiographs to review this morning. ASSESSMENT: 1. Status post ground level fall from standing on Eliquis. 2. Right intertrochanteric femur fracture, awaiting surgery. 3. Hyponatremia and hypochloremia. PLAN: Plan will be to continue supportive care, pain management, regular diet today and again n.p.o. after midnight. We will continue to monitor electrolytes. Recheck labs in the morning. Job ID: [id number]
[2019-08-14 13:31] LABS: Bacteria/HPF 2+ HPF (None Seen)
--- NOTE | 2019-08-14 22:53 | PRG ---
DATE OF SERVICE: 08/14/2019 SUBJECTIVE: The patient was seen this evening, lying in bed with no signs of acute distress. Family at bedside, reported the patient was much more comfortable today. The patient was sleepy at the time of my evaluation. She is going to the OR tomorrow with Orthopedic Surgery for fixation of her right intertrochanteric femur fracture. OBJECTIVE: VITAL SIGNS: Temperature 98, pulse 84, respirations 16, oxygen saturation 92% on room air, and blood pressure 143/84. GENERAL: Well-appearing elderly female, sitting up in bed with no signs of acute distress. PULMONARY: Equal chest rise and fall. Clear breath sounds bilaterally. No signs of acute respiratory distress. CARDIAC: Regular rate and rhythm. GI: Abdomen is soft, nontender, and nondistended. EXTREMITIES: 2+ pulses in all extremities. No significant swelling noted. Right lower extremity is mildly shortened and externally rotated. NEUROLOGIC: GCS is 15. ASSESSMENT: 1. Status post mechanical fall from standing, on Eliquis. 2. Right intertrochanteric femur fracture, pending surgery. 3. Hyponatremia and hypochloremia, worsening. 4. History of breast cancer, hypertension, hiatal hernia, atrial fibrillation, macular degeneration, and blindness to right eye. PLAN: The patient will be n.p.o. at midnight with normal saline at 70 an hour in preparation for the OR tomorrow for fixation of her right intertrochanteric femur fracture. The patient was also placed on 1.5 L free water restrictions and encouraged to drink Gatorade for the hyponatremia. Postoperatively, the patient will work with Physical and Occupational Therapy and be evaluated for placement at acute rehab facility. Job ID: [id number]
[2019-08-14] MEDS: Sodium Chloride 0.9% 1,000 ML IV SCH (23:23)
[2019-08-15] MEDS: Acetaminophen 500 MG TAB PO SCH ×4 (05:53→23:41)
[2019-08-15 06:17] LABS: Band 3 % (5-11); Eosinophils 1 % (0-10); Hemoglobin 10.6 g/dL (12.0-16.0); Lymphocytes 10 % (21-51); MDiff Complete? YES; Mean Corpuscular HGB CONC 35.8 g/dL (32.0-36.0); Mean Corpuscular Hemoglobin 31.8 pg (27.0-31.0); Mean Corpuscular Volume 88.9 fL (78.0-98.0); Mean Platelet Volume 6.6 fL (7.4-10.4); Monocytes 10 % (0-10); Neutrophil 76 % (42-75); Platelet Count 159 thou/uL (130-400); RBC Distribution Width 12.7 % (11.5-14.5); Red Blood Cell (RBC) Count 3.33 mill/uL (4.20-5.40); White Blood Cell (WBC) Count 8.1 thou/uL (4.8-10.8)
[2019-08-15] MEDS ORDERED: Fentanyl 100 MCG/2 ML VIAL ONE (07:23)
[2019-08-15] MEDS ORDERED: Ondansetron PF 4 MG/2 ML Vial ONE (07:23)
[2019-08-15] MEDS ORDERED: Scopolamine 1.5 mg/72 hour Patch ONE (07:24)
[2019-08-15 07:53] LABS: Chloride 102 mmol/L (98-107); Potassium 4.1 mmol/L (3.5-5.1); Sodium 130 mmol/L (136-145)
[2019-08-15 07:54] LABS: Calcium 7.8 mg/dL (7.8-10.44); Glucose 101 mg/dL (83-110)
[2019-08-15 07:56] LABS: Anion Gap 11 mmol/L (10-20); Carbon Dioxide 21 mmol/L (23-31)
[2019-08-15 07:57] LABS: Phosphorus 2.9 mg/dL (2.3-4.7)
[2019-08-15 07:58] LABS: BUN (Urea Nitrogen) 8 mg/dL (9.8-20.1); Calc. Creatinine Clearance 78 mL/min (70-130); Estimated GFR-MDRD 77
[2019-08-15 08:00] LABS: Magnesium 1.9 mg/dL (1.6-2.6)
[2019-08-15] MEDS ORDERED: Ondansetron HCl/PF 4 MG/2 ML Vial IVP PRN (08:31)
[2019-08-15] MEDS ORDERED: Promethazine HCl 25 MG/ML VIAL SLOW IVP PRN (08:31)
[2019-08-15] MEDS ORDERED: Promethazine HCl 25 MG/ML VIAL IM PRN (08:31)
[2019-08-15] MEDS: Polyethylene Glycol 3350 17 GM Packet PO SCH (09:25)
[2019-08-15] MEDS: predniSONE 5 MG TAB PO SCH ×2 (09:25→18:07)
[2019-08-15] MEDS: Losartan 25 MG TAB PO SCH (09:25)
[2019-08-15] MEDS: Famotidine 20 MG TAB PO SCH ×2 (09:25→20:49)
[2019-08-15] MEDS: Senokot S 8.6-50 MG TAB PO SCH ×2 (09:25→20:49)
--- NOTE | 2019-08-15 11:25 | RAD ---
XR Hip Rt 2-3 View History: ORIF Comparison: Radiograph prior day Findings: Satisfactory appearance of the dynamic right hip screw through the intertrochanteric fractu re right femur. Impression: Satisfactory postoperative appearance.
[2019-08-15] MEDS: CEFAZOLIN 2 GM in Premix Bag 1 BAG IVPB SCH ×2 (14:38→21:57)
[2019-08-15] MEDS: Sodium Chloride 0.9% 1,000 ML IV SCH (15:45)
--- NOTE | 2019-08-15 16:24 | OP ---
DATE OF PROCEDURE: 08/15/2019 PREOPERATIVE DIAGNOSIS: Right intertrochanteric femur fracture. POSTOPERATIVE DIAGNOSIS: Right intertrochanteric femur fracture. SURGICAL PROCEDURE: Open reduction and internal fixation of right intertrochanteric femur fracture with Synthes DHS plate. ANESTHESIA: General. ELECTRICAL ENGINEERING DESIGNER: Jyoti Gaxiola. ESTIMATED BLOOD LOSS: 100 mL. IMPLANTS: Synthes DHS 3-hole 135-degree sideplate with 95-mm hip screw. COMPLICATIONS: None. DRAINS: None. SPECIMENS: None. OUTCOME: Near-anatomic alignment. INDICATIONS: The patient is an 83-year-old lady, status post ground-level fall, sustaining a right intertrochanteric femur fracture. After discussion with the patient including risks and benefits, we have decided to proceed with surgical stabilization of this fracture to assist with mobility, help to control pain, and hopefully speed overall healing. Risks include, but are not limited to bleeding, infection, nerve injury, DVT, PE, malunion, nonunion, loss of limb or life. The patient appears to understand and does wish to proceed. DESCRIPTION OF PROCEDURE: The patient was brought to the operating room and a time-out performed followed by induction of general anesthesia. Next, she was positioned supine on the fracture table with the injured right extremity held in longitudinal traction and the well leg scissored to allow for AP and lateral C-arm imaging of the right hip. Next, a sterile prep and drape was performed of the right lateral thigh. An incision was made distal to the greater trochanter laterally after skin was sharply incised, dissection was carried through the subcutaneous layer of fat down to the level of the fascia sara. This was incised in line with skin incision and reflected anteriorly and posteriorly, revealing the fascia of vastus lateralis. This was incised in line with skin incision and then the muscle belly swept off the posterior leaflet of the fascia and delivered anteriorly with a radiolucent retractor. Next, a 135-degree guide was placed in the wound and the threaded guidewire was passed from the lateral cortex of the femur up the femoral neck into the femoral head. This was checked on both AP and lateral C-arm imaging. This was followed by preparing the head and neck for screw insertion using the step drill to a depth of 95 mm. Next, the 135-degree sideplate with its 95-mm hip screw was introduced into the wound. Once fully delivered, the plate was fixed with a total of three 4.5-mm cortical screws. The compression screw was then applied and then final AP and lateral C-arm images were obtained. The wound was irrigated with bulb syringe, then closed in layers with 0 Vicryl for the fascia sara followed by 0 Vicryl for Caity fascia, 2-0 Vicryl subcutaneously, and daniella for the skin. A Xeroform gauze and tape dressing was applied to the thigh and the patient was transferred to recovery room in stable condition. There were no complications. She tolerated the procedure well. Job ID: [id number]
--- NOTE | 2019-08-15 17:20 | PRG ---
DATE OF SERVICE: 08/15/2019 SUBJECTIVE: The patient is hospital day 3, awaiting operative intervention for a right intertrochanteric femur fracture. The patient is on Eliquis and required greater than 24 hours since her last dose prior to surgery. She is currently scheduled to go today. Overnight, she had no issues. This morning, she reports that her pain is controlled. She has been n.p.o. since midnight. OBJECTIVE: VITAL SIGNS: Temperature is 98.3, heart rate 71, blood pressure 119/76, respirations 16, oxygen saturation 95% on room air. GENERAL: The patient is resting comfortably in bed. She is awake, alert, and oriented. [place] Coma Scale is 15. HEENT: Unremarkable. LUNGS: Clear to auscultation with good inspiratory and expiratory effort. HEART: Regular rate and rhythm. ABDOMEN: Soft, flat, nontender with active bowel sounds. EXTREMITIES: Neurovascularly intact x4. LABORATORY FINDINGS: White blood cell count 8.1, hemoglobin 10.6, hematocrit 29.6, platelets 159. Sodium 130, potassium 4.1, chloride 102, CO2 of 21, BUN 8, creatinine 0.72, glucose 101, magnesium 1.9, and phosphorus 2.9. IMAGING: There are no radiographs reviewed this morning. ASSESSMENT: 1. Status post ground-level fall from standing, on Eliquis. 2. Awaiting surgery for right intertrochanteric femur fracture, scheduled for today. 3. Hyponatremia, improved. 4. Hypochloremia, resolved. PLAN: Plan will be to continue supportive care. Postoperatively, we will begin physical and occupational therapy and discuss placement. Job ID: [id number]
--- NOTE | 2019-08-16 00:03 | PRG ---
DATE OF SERVICE: 08/15/2019 SUBJECTIVE: The patient was seen this evening. Postoperatively, she was lying in bed with no signs of acute distress. She reported her pain is very well controlled. She denies any complaints at the time of my evaluation and had a meal for dinner. OBJECTIVE: VITAL SIGNS: 98.1, pulse 86, respirations 18, oxygen saturation 94% on room air, blood pressure 103/69. GENERAL: Well-appearing elderly female, lying in bed, with no signs of acute distress. PULMONARY: Equal chest rise and fall. Clear breath sounds bilaterally. No signs of acute respiratory distress. CARDIAC: Regular rate and rhythm. No murmurs, gallops, or rubs. GI: Abdomen is soft, nontender, nondistended. EXTREMITIES: 2+ pulses in all extremities. Gross motor and sensation are intact. No significant swelling noted. Right-sided thigh dressing is clean, dry, and intact with no signs of infection. NEUROLOGIC: GCS is 15. ASSESSMENT: 1. Status post mechanical fall from standing, on Eliquis. 2. Right-sided intertrochanteric femur fracture, status post repair. 3. Hyponatremia, improved. 4. History of breast cancer, hypertension, hiatal hernia, atrial fibrillation, macular degeneration, and right eye blindness. PLAN: The patient will continue to work with Physical and Occupational Therapy. We will continue free water restrictions for hyponatremia and continue to trend. We will hold home Eliquis for now and restart when hemoglobin has been stable. Discontinue IV fluids. We will remove the patient's Bolden tomorrow. The patient will likely need placement in acute rehab facility. We will continue to monitor her progress over the weekend. Job ID: [id number]
[2019-08-16] MEDS: CEFAZOLIN 2 GM in Premix Bag 1 BAG IVPB SCH (05:44)
[2019-08-16] MEDS: Acetaminophen 500 MG TAB PO SCH ×3 (05:44→18:32)
[2019-08-16 05:45] LABS: #Lymphocytes 0.9 thou/uL (1.20-3.40); #Monocytes 0.5 thou/uL (0.11-0.59); #Neutrophils 5.7 thou/uL (1.40-6.50); %Basophils 0.3 % (0.0-1.0); %Eosinophils 0.6 % (0.0-10.0); %Lymphocytes 11.8 % (21.0-51.0); %Monocytes 7.6 % (0.0-10.0); %Neutrophils 79.7 % (42.0-75.0); Hemoglobin 8.7 g/dL (12.0-16.0); Mean Corpuscular HGB CONC 34.7 g/dL (32.0-36.0); Mean Platelet Volume 6.9 fL (7.4-10.4); Platelet Count 152 thou/uL (130-400); RBC Distribution Width 12.8 % (11.5-14.5); Red Blood Cell (RBC) Count 2.73 mill/uL (4.20-5.40); White Blood Cell (WBC) Count 7.2 thou/uL (4.8-10.8)
[2019-08-16 05:52] LABS: Anion Gap 9 mmol/L (10-20); BUN (Urea Nitrogen) 8 mg/dL (9.8-20.1); Calc. Creatinine Clearance 76 mL/min (70-130); Calcium 7.7 mg/dL (7.8-10.44); Carbon Dioxide 26 mmol/L (23-31); Chloride 102 mmol/L (98-107); Estimated GFR-MDRD 75; Glucose 114 mg/dL (83-110); Magnesium 1.8 mg/dL (1.6-2.6); Phosphorus 2.8 mg/dL (2.3-4.7); Potassium 3.9 mmol/L (3.5-5.1); Sodium 133 mmol/L (136-145)
[2019-08-16] MEDS: Losartan 25 MG TAB PO SCH ×2 (08:03→08:09)
[2019-08-16] MEDS: predniSONE 5 MG TAB PO SCH ×2 (08:03→18:31)
[2019-08-16] MEDS: Polyethylene Glycol 3350 17 GM Packet PO SCH (08:03)
[2019-08-16] MEDS: Senokot S 8.6-50 MG TAB PO SCH ×2 (08:03→21:52)
[2019-08-16] MEDS: Famotidine 20 MG TAB PO SCH ×2 (08:04→21:52)
--- NOTE | 2019-08-16 16:56 | PRG ---
DATE OF SERVICE: 08/16/2019 SUBJECTIVE: The patient remains on the surgical floor. The patient is postop day #1 status post right-sided intertrochanteric femur fracture repair. The patient had a mechanical fall on Eliquis. The patient reports that her pain is well controlled at this time. The patient continues to tolerate a regular diet. OBJECTIVE: VITAL SIGNS: Temperature 98.4, pulse 67, respirations 16, SpO2 of 95% on room air, blood pressure 118/81. GENERAL: Well appearing elderly female, lying in hospital bed, no signs of distress. PULMONARY: Equal chest rise and fall, chest is symmetrical. No respiratory distress. CARDIAC: Regular rate, regular rhythm. GI: Abdomen is soft, nontender, nondistended. EXTREMITIES: 2+ pulses in all extremities. Positive movement and sensation intact. Right hip dressing is clean, dry, and intact. ASSESSMENT: 1. Status post mechanical fall from standing, on Eliquis. 2. Right-sided intertrochanteric femur fracture postop day #1 status post repair. 3. Hyponatremia, improved. 4. History of breast cancer, hypertension, hiatal hernia, atrial fibrillation, macular degeneration and right eye blindness. PLAN: Continue comfort measures. Continue to have the patient work with physical and occupational therapy. Continue free water restriction for hyponatremia and continue to trend. Continue to hold the patient's home Eliquis for now and restart when hemoglobin has been stable. We will discontinue the patient's Bolden catheter. We will continue to hold the patient's hydrochlorothiazide due to hyponatremia. The patient's family wants rehab in [place]. The patient is pending placement. Job ID: [id number]
[2019-08-16] MEDS: Magnesium Oxide 400 MG TAB PO SCH (21:52)
[2019-08-17] MEDS: Acetaminophen 500 MG TAB PO SCH ×5 (00:04→23:43)
--- NOTE | 2019-08-17 00:47 | PRG ---
DATE OF SERVICE: 08/16/2019 SUBJECTIVE: The patient was seen this evening during rounds. She was sitting up in bed with no signs of acute distress. The patient reported that today her day was "excellent." She did report she felt like she needed to have a bowel movement and would like to try to get to the bedside commode. She was able to work with Physical and Occupational Therapy and is remained hemodynamically stable. OBJECTIVE: VITAL SIGNS: Temperature 98.9, pulse 75, respirations 16, oxygen saturation 96% on room air, blood pressure 113/67. GENERAL: Well-appearing elderly female, sitting up in bed with no signs of acute distress. PULMONARY: Equal chest rise and fall. Clear breath sounds bilaterally. No signs of acute respiratory distress. CARDIAC: Regular rate and rhythm. No murmurs, gallops, or rubs. GI: Abdomen is soft, nontender, nondistended. EXTREMITIES: 2+ pulses in all extremities. No significant swelling noted. Gross motor and sensation are intact. NEUROLOGICAL: GCS is 15. ASSESSMENT: 1. Status post mechanical fall, on Eliquis. 2. Right intertrochanteric femur fracture, status post repair. 3. Acute hyponatremia, improving. 4. History of breast cancer, hypertension, hiatal hernia, atrial fibrillation, macular degeneration, right eye blindness. PLAN: Continue current diet and pain regimen. Continue free water restrictions. Continue holding hydrochlorothiazide due to hyponatremia. The patient did receive oral magnesium today for electrolyte replacement. Plan is to restart Eliquis in the morning if her hemoglobin remains stable tomorrow after lab draw. Continue work physical and occupational therapy. She is pending placement at acute rehab facility. Family has chosen a facility in [place]. Job ID: [id number]
--- NOTE | 2019-08-17 02:46 | EKG ---
Test Reason : Blood Pressure : / mmHG Vent. Rate : 076 BPM Atrial Rate : 076 BPM P-R Int : 132 ms QRS Dur : 082 ms QT Int : 422 ms P-R-T Axes : 056 033 035 degrees QTc Int : 474 ms Normal sinus rhythm Left atrial enlargement Nonspecific ST abnormality Abnormal ECG Confirmed by VLAD RAMOS, EDUARDA Menjivar ([id number]), food expeditor SUSSY ALEXIS ([id number]) on 08/17/2019 2:46:29 AM Referred By: Confirmed By:EDUARDA CHU MD
[2019-08-17 06:50] LABS: #Lymphocytes 0.9 thou/uL (1.20-3.40); #Monocytes 0.4 thou/uL (0.11-0.59); #Neutrophils 4.3 thou/uL (1.40-6.50); %Basophils 0.4 % (0.0-1.0); %Eosinophils 0.8 % (0.0-10.0); %Lymphocytes 15.9 % (21.0-51.0); %Monocytes 7.2 % (0.0-10.0); %Neutrophils 75.7 % (42.0-75.0); Hemoglobin 9.1 g/dL (12.0-16.0); Mean Corpuscular HGB CONC 34.8 g/dL (32.0-36.0); Mean Corpuscular Hemoglobin 32.3 pg (27.0-31.0); Mean Corpuscular Volume 92.9 fL (78.0-98.0); Platelet Count 180 thou/uL (130-400); RBC Distribution Width 12.9 % (11.5-14.5); Red Blood Cell (RBC) Count 2.81 mill/uL (4.20-5.40); White Blood Cell (WBC) Count 5.7 thou/uL (4.8-10.8)
[2019-08-17] MEDS: predniSONE 5 MG TAB PO SCH ×2 (07:59→17:42)
[2019-08-17] MEDS: Polyethylene Glycol 3350 17 GM Packet PO SCH (08:00)
[2019-08-17] MEDS: Apixaban 5 MG TAB PO SCH ×2 (08:00→20:51)
[2019-08-17] MEDS: Losartan 25 MG TAB PO SCH (08:00)
[2019-08-17] MEDS: Famotidine 20 MG TAB PO SCH ×2 (08:01→20:51)
[2019-08-17] MEDS: Senokot S 8.6-50 MG TAB PO SCH ×2 (08:01→20:51)
[2019-08-17] MEDS: Magnesium Oxide 400 MG TAB PO SCH ×2 (08:01→20:52)
--- NOTE | 2019-08-17 22:58 | PRG ---
DATE OF SERVICE: 08/17/2019 SUBJECTIVE: The patient was seen this evening, sitting up in bed and asleep. She is resting comfortably with no signs of acute distress. Nursing reported no acute events. OBJECTIVE: VITAL SIGNS: Temperature 97.7, pulse 95, respirations 16, oxygen saturation 93% on room air, blood pressure 131/78. GENERAL: Well-appearing elderly female, sitting up in bed, asleep with no signs of acute distress. PULMONARY: Equal chest rise and fall. No signs of acute respiratory distress. ASSESSMENT: 1. Status post mechanical fall on Eliquis. 2. Right intertrochanteric femur fracture, status post repair. 3. Hyponatremia, improving. 4. History of breast cancer, hypertension, hiatal hernia, atrial fibrillation, macular degeneration, right eye blindness. PLAN: Continue current diet and pain medications. Continue current home medications. Continue free water restriction and holding of hydrochlorothiazide for hyponatremia. We will add Ensure. The patient is pending placement at a rehab facility. The patient is requesting that the patient go to [facility], so she will be near them. The patient is ready for discharge at this time. Job ID: [id number]
[2019-08-18] MEDS: Acetaminophen 500 MG TAB PO SCH ×4 (05:10→23:41)
[2019-08-18] MEDS: Losartan 25 MG TAB PO SCH (08:15)
[2019-08-18] MEDS: Apixaban 5 MG TAB PO SCH ×2 (08:16→20:51)
[2019-08-18] MEDS: predniSONE 5 MG TAB PO SCH ×2 (08:16→16:25)
[2019-08-18] MEDS: Famotidine 20 MG TAB PO SCH ×2 (08:16→20:51)
[2019-08-18] MEDS: Magnesium Oxide 400 MG TAB PO SCH ×2 (08:16→20:51)
[2019-08-18] MEDS: Polyethylene Glycol 3350 17 GM Packet PO SCH (08:16)
[2019-08-18] MEDS: Senokot S 8.6-50 MG TAB PO SCH ×2 (08:16→20:54)
--- NOTE | 2019-08-18 09:34 | PRG ---
DATE OF SERVICE: 08/17/2019 SUBJECTIVE: The patient remains on the surgical floor. She is postop day #2, status post right-sided intertrochanteric femur fracture repair. There were no overnight events. The patient reports that her pain remains well controlled at this time. The patient continues to tolerate a regular diet, although her appetite is slightly diminished. She denies any nausea or vomiting. The patient has not had a bowel movement. OBJECTIVE: VITAL SIGNS: Temperature 97.9, pulse 69, respirations 14, SpO2 of 95% on room air, and blood pressure 114/73. GENERAL: Well-appearing elderly female, lying in hospital bed, in no acute distress. PULMONARY: Equal chest rise and fall, chest is symmetrical. No respiratory distress. CARDIAC: Regular rate and regular rhythm. EXTREMITIES: 2+ pulses in all extremities. Neurovascularly intact in all extremities. Right hip dressing is clean, dry, and intact. ASSESSMENT: 1. Status post mechanical fall from standing, on Eliquis. 2. Right-sided intertrochanteric femur fracture, postop day #2, status post open reduction and internal fixation. 3. Hyponatremia. 4. History of breast cancer, hypertension, hiatal hernia, atrial fibrillation, macular degeneration, and right eye blindness. PLAN: Continue comfort measures. Continue to have the patient work with Physical and Occupational Therapy. Continue free water restriction for hyponatremia. We will continue the patient's home Eliquis today, as the patient's hemoglobin has been stable. We will continue to hold the patient's hydrochlorothiazide due to hyponatremia. The patient is pending placement to rehab in [place]. The plan was discussed with the patient and family who agree. Job ID: [id number]
--- NOTE | 2019-08-18 14:29 | PRG ---
DATE OF SERVICE: 08/18/2019 SUBJECTIVE: The patient remains on the surgical floor. The patient is postop day #3 status post right-sided intertrochanteric femur fracture repair. The patient is currently sitting up in the chair, eating her breakfast. The patient denies any pain at this time. The patient reports that she slept well last night. The patient was able to work with Physical Therapy yesterday with some mild pain with ambulation. OBJECTIVE: VITAL SIGNS: Temperature 98.1, pulse 73, respirations 16, SpO2 of 95% on room air, blood pressure 130/79. GENERAL: Well-appearing elderly female, sitting up in chair, eating breakfast, in no acute distress. PULMONARY: Equal chest rise and fall, chest is symmetrical. No respiratory distress. CARDIAC: Regular rate, regular rhythm. EXTREMITIES: 2+ pulses in all extremities. Neurovascularly intact in all extremities. Right hip dressing is clean, dry, and intact. ASSESSMENT: 1. Status post mechanical fall from standing, on Eliquis. 2. Right-sided intertrochanteric femur fracture, postop day #3 status post open reduction and internal fixation. 3. Hyponatremia, improving. 4. History of breast cancer, hypertension, hiatal hernia, atrial fibrillation, macular degeneration, right eye blindness. PLAN: Continue comfort measures. Continue to have patient work with physical and occupational therapy. Continue free water restriction for hyponatremia. Continue the patient's home Eliquis. Continue to hold patient's hydrochlorothiazide due to hyponatremia at this time. The patient is pending placement to [facility] facility in [place] close to the patient's family. The patient was examined by Dr. Gage during morning rounds. The plan was discussed with the patient and family, who agree. Job ID: [id number]
--- NOTE | 2019-08-19 00:55 | PRG ---
DATE OF SERVICE: 08/18/2019 SUBJECTIVE: The patient was seen this evening, lying in bed with no signs of acute distress. She reported her pain was well controlled. She was able to walk to the nurse's station with Physical Therapy today. She is tolerating her diet. OBJECTIVE: VITAL SIGNS: Temperature 97.8, pulse 85, respirations 16, oxygen saturation 95% on room air, blood pressure 153/82. GENERAL: Well-appearing elderly female, lying in bed with no signs of acute distress. PULMONARY: Equal chest rise and fall. Clear breath sounds bilaterally. No signs of acute respiratory distress. CARDIAC: Regular rate and rhythm. No murmurs, gallops, rubs. GI: Abdomen is soft, nontender, nondistended. EXTREMITIES: 2+ pulses in all extremities. Gross motor and sensation are intact. No significant swelling noted. NEUROLOGIC: GCS is 15. ASSESSMENT: 1. Status post mechanical fall from standing. 2. Right intertrochanteric femur fracture, status post repair. 3. Acute hyponatremia, resolving. 4. History of breast cancer, hypertension, hiatal hernia, atrial fibrillation, macular degeneration, right eye blindness. PLAN: Continue current diet and pain regimen. Continue free water restrict. Continue to hold hydrochlorothiazide for hyponatremia. Continue other previously prescribed home medications. The patient is pending rehab or SNF in [place]. She is ready for discharge at this time. Job ID: [id number]
[2019-08-19] MEDS: Acetaminophen 500 MG TAB PO SCH ×4 (05:53→23:54)
[2019-08-19] MEDS: Losartan 25 MG TAB PO SCH (09:10)
[2019-08-19] MEDS: Apixaban 5 MG TAB PO SCH ×2 (09:11→20:46)
[2019-08-19] MEDS: Polyethylene Glycol 3350 17 GM Packet PO SCH (09:11)
[2019-08-19] MEDS: Famotidine 20 MG TAB PO SCH ×2 (09:11→20:46)
[2019-08-19] MEDS: predniSONE 5 MG TAB PO SCH ×2 (09:11→18:01)
[2019-08-19] MEDS: Senokot S 8.6-50 MG TAB PO SCH ×2 (09:12→20:47)
--- NOTE | 2019-08-19 13:50 | PRG ---
DATE OF SERVICE: 08/19/2019 SUBJECTIVE: The patient was seen and examined on morning rounds. The patient is sitting upright on side of bed with no signs of acute distress. She states that her pain is well controlled with p.o. pain medications. She is able to walk to the nurse's station with Physical Therapy. She is tolerating p.o. well without any nausea or vomiting. She is having multiple bowel movements and voiding without difficulty. The family and patient are eager for discharge to a [facility] facility in [place] for continued therapy. OBJECTIVE: VITAL SIGNS: Temperature 98.6, pulse 85, respiratory rate is 16, O2 saturation 95% on room air, and blood pressure 135/72. GENERAL: Well-appearing elderly female, sitting upright on side of bed, no acute signs of distress, in good spirits. HEENT: Extraocular movements are intact. Trachea midline. NECK: Supple. PULMONARY: Equal and symmetric chest wall rise and fall. No signs of acute respiratory distress. No increased work of breathing. ASSESSMENT: 1. Status post mechanical fall from standing. 2. Right intertrochanteric femur fracture, status post open reduction and internal fixation, postop day #4. 3. Acute hyponatremia, resolving. 4. History of breast cancer; hypertension; hiatal hernia; atrial fibrillation, on Eliquis; macular degeneration, leading to right eye blindness. PLAN: Plan will be to continue current diet and pain regimen. Continue free water restriction and holding hydrochlorothiazide for hyponatremia. Sodium has increased to 133 on last lab check. Continue other previously described home medications for chronic medical conditions. The patient is on Eliquis for her atrial fibrillation. Continue PT and OT. The patient is currently pending SNF in [place]. Appreciate case management assistance. The patient is medically ready for discharge once placement is arranged. The patient was seen and examined by Dr. Gage on morning rounds. The above plan was discussed with patient's family at bedside, who voiced agreement and understanding of the current plan and for ultimate placement at SNF once bed available and insurance approval. All questions were answered appropriately. Job ID: [id number]
--- NOTE | 2019-08-20 00:06 | PRG ---
DATE OF SERVICE: 08/19/2019 SUBJECTIVE: Ms. Cifuentes is an 83-year-old female, status post mechanical fall. She sustained a right hip fracture status post ORIF of right hip fracture postop day #4. The patient with history of hypertension, AFib, right eye blindness due to macular degeneration. The patient reports pain is well controlled. The patient is able to work with PT and OT, walk around the floor. She tolerated with her regular diet. Vital signs have been stable. OBJECTIVE: GENERAL: The patient is lying in bed comfortable with no acute distress. VITAL SIGNS: Stable. LUNGS: Clear bilaterally. HEART: Regular rate and rhythm. ABDOMEN: Soft, nondistended. EXTREMITIES: Neurovascularly intact x4. ASSESSMENT: Status post mechanical fall, right hip fracture status post ORIF of right hip fracture, postop day #4. PLAN: Continue supportive care. Continue pain control. Continue working with PT and OT. Continue DVT prophylaxis. The patient is pending for rehabilitation facility. Hopefully, the patient can be discharged to [facility] tomorrow. Job ID: [id number]
[2019-08-20] MEDS: Acetaminophen 500 MG TAB PO SCH ×3 (05:43→17:31)
[2019-08-20] MEDS: Famotidine 20 MG TAB PO SCH (08:27)
[2019-08-20] MEDS: Losartan 25 MG TAB PO SCH (08:27)
[2019-08-20] MEDS: Apixaban 5 MG TAB PO SCH (08:28)
[2019-08-20] MEDS: predniSONE 5 MG TAB PO SCH ×2 (08:28→17:31)
[2019-08-20] MEDS: Senokot S 8.6-50 MG TAB PO SCH (08:28)
[2019-08-20] MEDS: Polyethylene Glycol 3350 17 GM Packet PO SCH (08:29)
--- NOTE | 2019-08-20 10:31 | PRG ---
DATE OF SERVICE: 08/20/2019 SUBJECTIVE: The patient was seen and examined on morning rounds. The patient was resting comfortably in bedside chair, eating breakfast. She states that her pain is well controlled with p.o. pain medications and she is tolerating PT and OT well. She also tolerating p.o. well without any nausea or vomiting. She has had multiple bowel movements and voiding without difficulty. She and family are eager for discharge to [facility] [place] for continued therapy. OBJECTIVE: VITAL SIGNS: Temperature 98.8, heart rate 76, respiratory rate 14, O2 saturation 94% on room air, blood pressure 135/79. GENERAL: Well appearing elderly female, sitting upright in bedside chair, no sign of acute distress, in good spirits and eager to continue working with therapy. HEENT: Extraocular movements intact. Trachea midline. NECK: Supple. PULMONARY: Equal and symmetric chest rise and fall. No signs of acute respiratory distress. No increased work of breathing. ASSESSMENT: 1. Status post mechanical fall from standing. 2. Right intertrochanteric femur fracture status post open reduction, internal fixation, postop day #5. 3. Acute hyponatremia, resolving. 4. History of breast cancer, hypertension, hiatal hernia, atrial fibrillation on Eliquis, macular degeneration leading to right eye blindness. PLAN: Plan will be to continue supportive care with current diet, pain management, and bowel regimen. We will continue free water restriction and holding hydrochlorothiazide for acute on chronic hyponatremia. Continue other home medications for chronic medical conditions. The patient on Eliquis for her chronic atrial fibrillation. We will continue PT and OT. The patient is currently pending acceptance to the [facility] [place]. Appreciate case management assistance. The patient is medically ready for discharge once placement is arranged. The patient was seen and examined by Dr. Gage on morning rounds. The above plan discussed with patient, family at bedside, who voiced agreement and understanding of the plan with discharge to the [facility] once insurance approval and bed availability. All questions were answered appropriately. Job ID: [id number]
[2019-08-20 14:51] VITALS: BP 110/70; TEMP 97.7
--- NOTE | 2019-08-21 14:24 | DIS ---
DATE OF ADMISSION: 08/13/2019 DATE OF DISCHARGE: 08/20/2019 ADMISSION DIAGNOSES: 1. Status post fall from standing, on Eliquis. 2. Right intertrochanteric femur fracture. 3. Hyponatremia and hypochloremia. 4. Hypophosphatemia and hypomagnesemia. 5. History of left-sided breast cancer status post mastectomy. 6. History of hypertension. 7. Hiatal hernia. 8. Atrial fibrillation. 9. Macular degeneration. 10. Right eye blindness. CONSULTATIONS: Orthopedics, Dr. Christian. PROCEDURES: Open reduction and internal fixation of right intertrochanteric femur fracture with [employer] DHS plate. SUMMARY: The patient is an 83-year-old woman, who reportedly had a fall, on Eliquis. She was brought to the emergency department where she underwent evaluation, examination and noted have the above injuries. Because of the patient being on Eliquis, required her to be off her medications for 48 hours prior to undergoing her surgical procedure. The patient tolerated procedure well. She would begin work with Physical and Occupational Therapy and due to the family being out of the area, the family requested that she be sent to a rehab facility in [place]. This was arranged by Case Management. At time of discharge, she was tolerating a diet. Her pain was controlled, her bowel function returned. She was progressing with physical and occupational therapy. She will follow up with Dr. Heath in 2-3 weeks, sooner as needed. She may follow up with [facility] as needed. Prior to discharge, the patient's electrolyte imbalance was corrected. Job ID: [id number]
== END 2019-08-20 19:00 | DRG 481 ==
LOC: ERS 20:04 → SURG A 22:46
PROVIDERS: ADMIT Surgery; ATTEND Surgery
PROC: 0QS604Z Reposition Right Upper Femur with Internal Fixation Device, Open Approach (ICD-10-PCS; principal; 2019-08-15)
DX: S72.141A Displaced intertrochanteric fracture of right femur, initial encounter for closed fracture (principal); E87.1 Hypo-osmolality and hyponatremia; H35.30 Unspecified macular degeneration; H54.8 Legal blindness, as defined in USA; K44.9 Diaphragmatic hernia without obstruction or gangrene; I48.91 Unspecified atrial fibrillation; E87.8 Other disorders of electrolyte and fluid balance, not elsewhere classified; W18.30XA Fall on same level, unspecified, initial encounter; Z85.3 Personal history of malignant neoplasm of breast; Z79.01 Long term (current) use of anticoagulants; Z79.52 Long term (current) use of systemic steroids; Z79.899 Other long term (current) drug therapy
CPT/HCPCS: 36415; 70450; 71045; 72170; 76000; 80048; 80053; 81015; 83735; 84100; 85025; 85610; 86850; 86900; 86901; 93005; 96361; 96374; 96375; 99292; G0390; J0690; J1885; J2405; J3010; J3475; J3480; J3490; J7050; J7512

== ENCOUNTER 2020-08-26 14:15 | Outpatient (CLI) | payer MEDICARE ==
--- NOTE | 2020-08-26 15:10 | ULT ---
Thyroid sonogram HISTORY: Thyroid nodule. FINDINGS: Right thyroid lobe measures up to 4.5 cm length. At the superior pole is a heterogeneous partially cy stic predominantly isoechoic 0.7 cm nodule. Within the central aspect is a curvilinear shadowing calcification associated with a non-visualized nodule. It is 1.1 cm length. Associated mass not well delineated. Tiny benign cyst is present immediately inferior to this. Isthmus is 0.5 cm thickness. Left thyroid lobe measures up to 4.6 cm. An oval cyst at the superior pole is 1.2 cm greatest diamete r. At the inferior pole, a lobular well circumscribed predominantly isoechoic solid mass with small cyst ic component is 2.1 cm depth by 1.7 cm x 1.8 cm length and width. No internal calcifications. TI RADS 4. Moderately suspicious. IMPRESSION : Dominant nodule at the inferior pole left thyroid lobe measures up to 2.1 cm and is TI RADS 4. Modera tely suspicious. Based on the TI RADS criteria, tissue sampling is recommended. Sonographic guided FNA could be perfor med if needed.
== END 2020-08-26 14:16 | disposition home or self-care (01) ==
LOC: BICULT 14:15
PROVIDERS: ATTEND Internal Medicine Cardiovascular Disease
DX: E04.1 Nontoxic single thyroid nodule (principal)
CPT/HCPCS: 76536

== ENCOUNTER 2021-09-04 20:46 | Inpatient (IN) | payer MEDICARE ==
[~2021-09-04 20:46] MED LIST: Iopamidol-370 76% 500 ML 1 ML ONE
[2021-09-04 21:27] LABS: ALT (SGPT) 8 U/L (8-55); AST (SGOT) 13 U/L (5-34); Alkaline Phosphatase 44 U/L (40-110); Anion Gap 15 mmol/L (10-20); BUN (Urea Nitrogen) 9 mg/dL (9.8-20.1); Bilirubin, Total 1.1 mg/dL (0.2-1.2); Calc. Creatinine Clearance 0 mL/min (70-130); Calcium 9.9 mg/dL (7.8-10.44); Carbon Dioxide 22 mmol/L (23-31); Chloride 102 mmol/L (98-107); Globulin 2.7 g/dL (2.4-3.5); Glucose 163 mg/dL (83-110); Lipase 24 U/L (8-78); Potassium 3.1 mmol/L (3.5-5.1); Protein, Total 6.7 g/dL (5.8-8.1); Sodium 136 mmol/L (136-145)
[2021-09-04 21:43] LABS: Hemoglobin 16.1 g/dL (12.0-16.0); Mean Corpuscular HGB CONC 35.1 g/dL (32.0-36.0); Mean Corpuscular Hemoglobin 31.8 pg (27.0-31.0); Mean Corpuscular Volume 90.6 fL (78.0-98.0); Mean Platelet Volume 8.8 fL (7.4-10.4); Platelet Count 225 thou/uL (130-400); RBC Distribution Width 12.3 % (11.5-14.5); Red Blood Cell (RBC) Count 5.04 mill/uL (4.20-5.40); White Blood Cell (WBC) Count 21.4 thou/uL (4.8-10.8)
[2021-09-04 22:20] LABS: Band 4 % (5-11); Lymphocytes 9 % (21-51); MDiff Complete? YES; Monocytes 6 % (0-10); Neutrophil 78 % (42-75); Platelet Morphology Comment Appears Adequate; RBC Morphology Normal; Reactive Lymphocytes 3 % (0-10)
[2021-09-04] MEDS ORDERED: cefTRIAXone\\ROCEPHIN 2 GM VIAL ONE (23:42)
[2021-09-04] MEDS ORDERED: Potassium Chloride 20 MEQ TAB ONE (23:53)
[2021-09-05] MEDS ORDERED: Azithromycin 500 MG VIAL ONE (00:35)
[2021-09-05] MEDS ORDERED: Ondansetron PF 4 MG/2 ML Vial IVP PRN (01:04)
[2021-09-05] MEDS ORDERED: Bisacodyl 10 MG SUPP PR PRN (01:04)
[2021-09-05] MEDS ORDERED: Morphine 4 MG/ML VIAL SLOW IVP PRN ×2 (01:11→01:19)
[2021-09-05] MEDS ORDERED: Dextrose 5% in Water 1,000 ML IV PRN (01:22)
[2021-09-05] MEDS ORDERED: Dextrose 50% Abboject 50 ML SYRINGE SLOW IVP PRN (01:22)
[2021-09-05] MEDS ORDERED: Sodium Chloride 0.9% (PF) 10 ML VIAL FS PRN (01:30)
[2021-09-05] MEDS ORDERED: Pantoprazole 40 MG VIAL IVP SCH (02:00)
[2021-09-05] MEDS ORDERED: Piperacillin/Tazobactam 3.375 GM in Sodium Chloride 0.9% 100 ML IVPB SCH (02:00)
[2021-09-05 02:49] LABS: Bilirubin Negative (Negative); Blood, Urine Negative (Negative); Clarity Clear (Clear); Glucose, Urine (Dipstick) 70 mg/dL (Negative); Ketone, Urine 20 mg/dL (Negative); Leukocyte Negative Leu/uL (Negative); Nitrite Negative (Negative); Protein, Urine (Dipstick) Negative (Neg-Trace); Urobilinogen Normal mg/dL (Less than 2)
[2021-09-05 05:12] LABS: Lactic Acid 2.5 mmol/L (0.5-2.2)
[2021-09-05 05:20] LABS: ALT (SGPT) 10 U/L (8-55); AST (SGOT) 18 U/L (5-34); Albumin 3.5 g/dL (3.4-4.8); Alkaline Phosphatase 38 U/L (40-110); Anion Gap 17 mmol/L (10-20); BUN (Urea Nitrogen) 9 mg/dL (9.8-20.1); Bilirubin, Total 0.9 mg/dL (0.2-1.2); Calc. Creatinine Clearance 0 mL/min (70-130); Calcium 8.9 mg/dL (7.8-10.44); Carbon Dioxide 18 mmol/L (23-31); Chloride 107 mmol/L (98-107); Globulin 2.5 g/dL (2.4-3.5); Glucose 161 mg/dL (83-110); Iron 37 ug/dL (50-170); Iron Binding Capacity, Total 248 mcg/dL (265-497); Potassium 3.6 mmol/L (3.5-5.1); Sodium 138 mmol/L (136-145)
[2021-09-05 05:21] LABS: Band 7 % (5-11); Hemoglobin 15.4 g/dL (12.0-16.0); Lymphocytes 5 % (21-51); MDiff Complete? YES; Mean Corpuscular HGB CONC 34.9 g/dL (32.0-36.0); Mean Corpuscular Hemoglobin 31.7 pg (27.0-31.0); Mean Corpuscular Volume 90.8 fL (78.0-98.0); Mean Platelet Volume 8.1 fL (7.4-10.4); Monocytes 5 % (0-10); Neutrophil 83 % (42-75); Platelet Count 168 thou/uL (130-400); Platelet Morphology Comment Appears Adequate; RBC Distribution Width 12.3 % (11.5-14.5); RBC Morphology Normal; Red Blood Cell (RBC) Count 4.84 mill/uL (4.20-5.40); White Blood Cell (WBC) Count 21.3 thou/uL (4.8-10.8)
[2021-09-05 05:33] LABS: Hemoglobin A1c 5.5 % (4.0-6.0)
[2021-09-05] MEDS: Piperacillin/Tazobactam 3.375 GM in Sodium Chloride 0.9% 100 ML IVPB SCH ×3 (05:35→21:37)
[2021-09-05] MEDS: Sodium Chloride 0.9% 1,000 ML IV SCH (05:36)
[2021-09-05 06:07] VITALS: BMI 26.8
[2021-09-05 07:12] LABS: Cardiac Risk 3.9 (Less than 4.5)
[2021-09-05] MEDS: Pantoprazole 40 MG VIAL IVP SCH ×2 (08:16→21:39)
[2021-09-05] MEDS ORDERED: hydrALAZINE 20 MG/ML VIAL SLOW IVP PRN (08:53)
[2021-09-05 11:57] LABS: SARS-CoV-2 PCR by NAA Not Detected (NotDetected)
[2021-09-05] MEDS ORDERED: Acetaminophen 325 MG TAB PO PRN ×2 (17:16→17:43)
[2021-09-05 17:35] LABS: #Basophils 0.1 thou/uL (0.0-0.2); #Lymphocytes 1.6 thou/uL (1.20-3.40); #Monocytes 1.2 thou/uL (0.11-0.59); #Neutrophils 14.1 thou/uL (1.40-6.50); %Basophils 0.4 % (0.0-1.0); %Eosinophils 0.1 % (0.0-10.0); %Lymphocytes 9.4 % (21.0-51.0); %Monocytes 7.1 % (0.0-10.0); %Neutrophils 83.1 % (42.0-75.0); Hemoglobin 14.3 g/dL (12.0-16.0); Mean Corpuscular HGB CONC 33.9 g/dL (32.0-36.0); Mean Corpuscular Hemoglobin 30.7 pg (27.0-31.0); Mean Corpuscular Volume 90.4 fL (78.0-98.0); Platelet Count 184 thou/uL (130-400); RBC Distribution Width 12.3 % (11.5-14.5); Red Blood Cell (RBC) Count 4.65 mill/uL (4.20-5.40)
[2021-09-05 17:56] LABS: Anion Gap 13 mmol/L (10-20); BUN (Urea Nitrogen) 12 mg/dL (9.8-20.1); Calc. Creatinine Clearance 71 mL/min (70-130); Calcium 8.8 mg/dL (7.8-10.44); Carbon Dioxide 21 mmol/L (23-31); Chloride 107 mmol/L (98-107); Glucose 105 mg/dL (83-110); Potassium 3.1 mmol/L (3.5-5.1); Sodium 138 mmol/L (136-145)
[2021-09-05] MEDS: predniSONE 5 MG TAB PO SCH (21:36)
[2021-09-06] MEDS: Piperacillin/Tazobactam 3.375 GM in Sodium Chloride 0.9% 100 ML IVPB SCH ×3 (05:37→22:22)
[2021-09-06 07:27] LABS: #Lymphocytes 1.4 thou/uL (1.20-3.40); #Monocytes 0.9 thou/uL (0.11-0.59); #Neutrophils 10.4 thou/uL (1.40-6.50); %Basophils 0.2 % (0.0-1.0); %Eosinophils 0.3 % (0.0-10.0); %Lymphocytes 11.1 % (21.0-51.0); %Monocytes 6.9 % (0.0-10.0); %Neutrophils 81.5 % (42.0-75.0); Mean Corpuscular HGB CONC 34.7 g/dL (32.0-36.0); Mean Corpuscular Hemoglobin 31.5 pg (27.0-31.0); Mean Corpuscular Volume 90.9 fL (78.0-98.0); Mean Platelet Volume 7.9 fL (7.4-10.4); Platelet Count 162 thou/uL (130-400); RBC Distribution Width 12.4 % (11.5-14.5); Red Blood Cell (RBC) Count 4.14 mill/uL (4.20-5.40); White Blood Cell (WBC) Count 12.8 thou/uL (4.8-10.8)
[2021-09-06 07:44] LABS: Anion Gap 12 mmol/L (10-20); BUN (Urea Nitrogen) 14 mg/dL (9.8-20.1); Calc. Creatinine Clearance 71 mL/min (70-130); Calcium 8.3 mg/dL (7.8-10.44); Carbon Dioxide 20 mmol/L (23-31); Chloride 110 mmol/L (98-107); Glucose 89 mg/dL (83-110); Potassium 3.4 mmol/L (3.5-5.1); Sodium 139 mmol/L (136-145)
[2021-09-06] MEDS: predniSONE 5 MG TAB PO SCH ×2 (08:28→20:05)
[2021-09-06] MEDS: Pantoprazole 40 MG VIAL IVP SCH ×2 (08:28→20:40)
[2021-09-06] MEDS: Losartan 25 MG TAB PO SCH (09:00)
[2021-09-06] MEDS: Sodium Chloride 0.9% 1,000 ML IV SCH ×2 (17:09→18:31)
[2021-09-07] MEDS: Piperacillin/Tazobactam 3.375 GM in Sodium Chloride 0.9% 100 ML IVPB SCH ×3 (05:18→21:54)
[2021-09-07 06:39] LABS: #Monocytes 0.6 thou/uL (0.11-0.59); #Neutrophils 6.6 thou/uL (1.40-6.50); %Basophils 0.4 % (0.0-1.0); %Eosinophils 0.5 % (0.0-10.0); %Lymphocytes 11.7 % (21.0-51.0); %Monocytes 6.8 % (0.0-10.0); %Neutrophils 80.7 % (42.0-75.0); Mean Corpuscular Hemoglobin 31.8 pg (27.0-31.0); Mean Corpuscular Volume 90.7 fL (78.0-98.0); Mean Platelet Volume 8.3 fL (7.4-10.4); Platelet Count 143 thou/uL (130-400); RBC Distribution Width 12.1 % (11.5-14.5); Red Blood Cell (RBC) Count 3.79 mill/uL (4.20-5.40); White Blood Cell (WBC) Count 8.2 thou/uL (4.8-10.8)
[2021-09-07 06:57] LABS: Anion Gap 9 mmol/L (10-20); BUN (Urea Nitrogen) 12 mg/dL (9.8-20.1); Calc. Creatinine Clearance 74 mL/min (70-130); Calcium 7.8 mg/dL (7.8-10.44); Carbon Dioxide 24 mmol/L (23-31); Chloride 109 mmol/L (98-107); Glucose 108 mg/dL (83-110); Potassium 3.4 mmol/L (3.5-5.1); Sodium 139 mmol/L (136-145)
[2021-09-07] MEDS ORDERED: Potassium Chloride 20 MEQ TAB PO SCH (08:00)
[2021-09-07] MEDS: Losartan 25 MG TAB PO SCH (08:18)
[2021-09-07] MEDS: predniSONE 5 MG TAB PO SCH ×2 (08:18→20:57)
[2021-09-07] MEDS: Pantoprazole 40 MG VIAL IVP SCH (08:18)
[2021-09-07 11:48] LABS: Albumin-Ur 69.6 % (.); Alpha 1 - Ur 3.6 % (.); Alpha 2 - Ur 2.5 % (.); Beta-Ur 16.3 % (.); M-Spike,% Not Observed % (Not Observed); Protein, Urine 9.4 mg/dL (Not Estab.)
[2021-09-07] MEDS: Apixaban 5 MG TAB PO SCH (20:56)
[2021-09-07] MEDS: Sodium Chloride 0.9% 1,000 ML IV SCH (21:52)
[2021-09-08] MEDS: Piperacillin/Tazobactam 3.375 GM in Sodium Chloride 0.9% 100 ML IVPB SCH ×2 (05:48→13:55)
[2021-09-08 06:28] LABS: #Lymphocytes 1.1 thou/uL (1.20-3.40); #Monocytes 0.4 thou/uL (0.11-0.59); #Neutrophils 4.4 thou/uL (1.40-6.50); %Basophils 0.5 % (0.0-1.0); %Eosinophils 0.8 % (0.0-10.0); %Lymphocytes 17.8 % (21.0-51.0); %Monocytes 6.1 % (0.0-10.0); %Neutrophils 74.8 % (42.0-75.0); Hemoglobin 12.5 g/dL (12.0-16.0); Mean Corpuscular HGB CONC 34.2 g/dL (32.0-36.0); Mean Corpuscular Hemoglobin 31.5 pg (27.0-31.0); Mean Platelet Volume 8.2 fL (7.4-10.4); Platelet Count 153 thou/uL (130-400); Red Blood Cell (RBC) Count 3.97 mill/uL (4.20-5.40); White Blood Cell (WBC) Count 5.9 thou/uL (4.8-10.8)
[2021-09-08 06:49] LABS: Anion Gap 11 mmol/L (10-20); BUN (Urea Nitrogen) 10 mg/dL (9.8-20.1); Calc. Creatinine Clearance 73 mL/min (70-130); Carbon Dioxide 23 mmol/L (23-31); Chloride 110 mmol/L (98-107); Glucose 118 mg/dL (83-110); Potassium 3.5 mmol/L (3.5-5.1); Sodium 140 mmol/L (136-145)
[2021-09-08] MEDS: Apixaban 5 MG TAB PO SCH ×2 (08:23→20:38)
[2021-09-08] MEDS: Losartan 25 MG TAB PO SCH (08:24)
[2021-09-08] MEDS: predniSONE 5 MG TAB PO SCH ×2 (08:24→20:38)
[2021-09-08] MEDS: Amoxicillin/Potassium Clav 875 MG TAB PO SCH (20:38)
[2021-09-09 06:20] LABS: Hemoglobin 11.7 g/dL (12.0-16.0); Mean Corpuscular HGB CONC 34.2 g/dL (32.0-36.0); Mean Corpuscular Volume 90.5 fL (78.0-98.0); Mean Platelet Volume 8.2 fL (7.4-10.4); Platelet Count 148 thou/uL (130-400); RBC Distribution Width 11.8 % (11.5-14.5); Red Blood Cell (RBC) Count 3.79 mill/uL (4.20-5.40); White Blood Cell (WBC) Count 4.6 thou/uL (4.8-10.8)
[2021-09-09 07:05] LABS: Anion Gap 11 mmol/L (10-20); BUN (Urea Nitrogen) 9 mg/dL (9.8-20.1); Calc. Creatinine Clearance 74 mL/min (70-130); Calcium 8.1 mg/dL (7.8-10.44); Carbon Dioxide 22 mmol/L (23-31); Chloride 110 mmol/L (98-107); Glucose 114 mg/dL (83-110); Potassium 3.3 mmol/L (3.5-5.1); Sodium 140 mmol/L (136-145)
[2021-09-09] MEDS: Amoxicillin/Potassium Clav 875 MG TAB PO SCH (08:28)
[2021-09-09] MEDS: Apixaban 5 MG TAB PO SCH (08:28)
[2021-09-09] MEDS: Losartan 25 MG TAB PO SCH (08:28)
[2021-09-09] MEDS: predniSONE 5 MG TAB PO SCH (08:29)
[2021-09-09] MEDS ORDERED: Potassium Chloride 20 MEQ TAB PO SCH (09:45)
[2021-09-09 13:13] VITALS: BP 144/88; TEMP 98
== END 2021-09-09 12:53 | disposition home or self-care (01) | DRG 391 ==
LOC: ERS 20:46 → T4-B 09-05 00:07
PROVIDERS: ADMIT Internal Medicine; ATTEND Internal Medicine
DX: K21.00 Gastro-esophageal reflux disease with esophagitis, without bleeding (principal); J69.0 Pneumonitis due to inhalation of food and vomit; Z20.822 Contact with and (suspected) exposure to COVID-19; G95.9 Disease of spinal cord, unspecified; M35.3 Polymyalgia rheumatica; R11.15 Cyclical vomiting syndrome unrelated to migraine; R73.9 Hyperglycemia, unspecified; K22.89 Other specified disease of esophagus; E87.6 Hypokalemia; E07.9 Disorder of thyroid, unspecified; R09.02 Hypoxemia; K29.70 Gastritis, unspecified, without bleeding; K44.9 Diaphragmatic hernia without obstruction or gangrene; I48.91 Unspecified atrial fibrillation; E78.5 Hyperlipidemia, unspecified; E78.00 Pure hypercholesterolemia, unspecified; H54.40 Blindness, one eye, unspecified eye; H35.30 Unspecified macular degeneration; E03.9 Hypothyroidism, unspecified; Z90.49 Acquired absence of other specified parts of digestive tract; Z90.12 Acquired absence of left breast and nipple; Z79.01 Long term (current) use of anticoagulants; Z79.52 Long term (current) use of systemic steroids; Z79.899 Other long term (current) drug therapy; Z82.49 Family history of ischemic heart disease and other diseases of the circulatory system; Z86.73 Personal history of transient ischemic attack (TIA), and cerebral infarction without residual deficits; Z85.3 Personal history of malignant neoplasm of breast; Z92.3 Personal history of irradiation; Z92.21 Personal history of antineoplastic chemotherapy
CPT/HCPCS: 36415; 36416; 71045; 71275; 74177; 80048; 80053; 80061; 81003; 82274; 83036; 83540; 83550; 83605; 83690; 84166; 84443; 84484; 85025; 85027; 86850; 86900; 86901; 93005; 94760; 96365; 96367; C9113; J0360; J0456; J0696; J2543; J3490; J7050; J7512; Q9967; U0003; U0005